=== PATIENT | female | born 1985 | race Caucasian/White ===

== ENCOUNTER 2016-06-12 11:04 | Emergency (ER) | payer MEDICAID ==
[~2016-06-12] VITALS: Ht 154.9 cm; Wt 50.0 kg
[~2016-06-12 11:04] MED LIST: BUTATAB6 PO; CYCL1TAB29 PO; CYCL5TAB PO; DIME240C PO; FERR325T PO; MULTTAB67 PO; SENN1TAB PO
[2016-06-12 11:05] VITALS: BP 102/57; PULSE 67; RESP 16; TEMP 98.4; O2SAT 97
--- NOTE | 2016-06-12 11:30 | PD ---
HPI Chief Complaint: Neuro Symptoms/ Deficits Time Seen by Provider: 11:27 Travel History International Travel<30 days: No Contact w/Intl Traveler<30days: No Traveled to known affect area: No History of Present Illness HPI 31 year-old female history of MS, followed by Dr. Kohli, presents to the emergency department for exacerbation. Patient states over the last 4 days she has noticed a worsening in her speech and weakness in her legs. She states they have been giving out more often. She contacted Dr. Kohli's office this morning and was sized to come to the emergency department. She denies any recent illnesses but believe she is coming down with a cold. Denies fever chills. No chest pain or tightness. No difficulty breathing. No headaches or visual changes. She has no other symptoms to report at this time. PFSH Past Medical History Anemia: Yes Arthritis: No Asthma: No Autoimmune Disease: Yes (MS) Anxiety: No Depression: Yes Heart Rhythm Problems: No Cancer: No Cardiovascular Problems: No High Cholesterol: No Chemotherapy: No Chest Pain: No Congestive Heart Failure: No COPD: No Cerebrovascular Accident: No Diabetes: No Diminished Hearing: No Endocrine: No Gastrointestinal Disorders: No GERD: No Glaucoma: No Genitourinary: No Headaches: Yes Hepatitis: No Hiatal Hernia: No Hypertension: No Immune Disorder: No Implanted Vascular Access Dvce: No Kidney Stones: No Musculoskeletal: Yes (MS) Neurologic: Yes Psychiatric: No Reproductive: No Respiratory: No Immunizations Current: Yes Migraines: Yes Radiation Therapy: No Renal Failure: No Seizures: No Sickle Cell Disease: No Sleep Apnea: No Thyroid Disease: Yes (mass ( DENIES)) Ulcer: No ?: Not LMP: 06/08/16 : 3 Para: 3 Tubal Ligation: Yes Past Surgical History Abdominal Surgery: No AICD: No Appendectomy: No Arteriovenous Shunt: No Cardiac Surgery: No Section: Yes (X3) Cholecystectomy: No Ear Surgery: No Endocrine Surgery: No Eye Surgery: No Genitourinary Surgery: No Gynecologic Surgery: Yes (, tubal ligation) Insulin Pump: No Joint Replacement: No Neurologic Surgery: No Oral Surgery: No Pacemaker: No Thoracic Surgery: No Other Surgery: Yes Social History Alcohol Use: Yes (3-4x week) Tobacco Use: No Substance Use: No Allergies-Medications (Allergen,Severity, Reaction): Coded Allergies: Lortab (Verified Allergy, Severe, 05/08/16) vomiting Tramadol (Verified Allergy, Severe, Nausea/Vomiting, 05/08/16) Reported Meds & Prescriptions Reported Meds & Active Scripts Active Flexeril (Cyclobenzaprine HCl) 10 Mg Tab 10 Mg PO TID Flexeril (Cyclobenzaprine HCl) 5 Mg Tab 5 Mg PO HS Vaaixoorta-Hddrxoocxgmjh-Jgtwrtgb 50-325-40 Mg Tab 1 Tab PO Q8H PRN Senna Plus 8.6-50 mg (Sennosides-Docusate Sodium) 1 Tab Tab 2 Tab PO BID PRN 30 Days Ferrous Sulfate 325 Mg Tab 325 Mg PO BID@12,17 30 Days Reported Tecfidera (Dimethyl Fumarate) 240 Mg Cap 240 Mg PO BID Multiple Vitamin 1 Tab 1 Tab PO DAILY Review of Systems Except as stated in HPI: all other systems reviewed are Neg Physical Exam Narrative GENERAL: Well-nourished female patient, ambulatory by walker assistance, in no acute distress SKIN: Warm and dry. HEAD: Atraumatic. Normocephalic. EYES: Pupils equal and round. No scleral icterus. No injection or drainage. ENT: No nasal bleeding or discharge. Mucous membranes pink and moist. NECK: Trachea midline. No JVD. CARDIOVASCULAR: Regular rate and rhythm. No murmur appreciated. RESPIRATORY: No accessory muscle use. Clear to auscultation. Breath sounds equal bilaterally. GASTROINTESTINAL: Abdomen soft, non-tender, nondistended. Hepatic and splenic margins not palpable. MUSCULOSKELETAL: No obvious deformities. No clubbing. No cyanosis. No edema. NEUROLOGICAL: Awake and alert. No obvious cranial nerve deficits. Intermittent Spastic movements of the extremities. Stuttered speech. Data Data Last Documented VS Vital Signs Date Time Temp Pulse Resp B/P Pulse Ox O2 Delivery O2 Flow Rate FiO2 06/12/16 11:05 98.4 67 16 102/57 97 Room Air Orders MDM Medical Decision Making Medical Screen Exam Complete: Yes Emergency Medical Condition: Yes Medical Record Reviewed: Yes Differential Diagnosis MS exacerbation versus viral syndrome versus electrolyte abnormality versus intracranial etiology. Narrative Course 31 year-old female presents to the emergency department for evaluation of MS workup. Workup was initiated in triage. Once a medical bed becomes available, patient will be transferred and care assumed by that provider. 11:29 AM a call has been placed to Dr. Kohli for recommended care plan. [id number] I spoke with Dr. Kohli. Dr. Kohli would not like a workup done here in emergency department. He is in his [place] office, like to evaluate the patient there. I spoke with Latosha in his office who states the patient can go immediately there and they will fit her in. I discussed this plan with the patient. She is in agreement with this plan of care. She agrees to return immediately with any acute worsening of symptoms. Initial workup is canceled at this time. Diagnosis Primary Impression: Multiple sclerosis exacerbation Referrals: Donn Kohli PhD MD Patient Instructions: General Instructions, Multiple Sclerosis (DC) Additional Instructions: [address] [place] [address] on the Right Turn right there 3 story building First floor[address] Med/Other Pt SpecificInfo: No Change to Meds Disposition: 01 DISCHARGE HOME Condition: Stable Katie Farias Jun 12, 2016 11:29
[2016-06-20] MEDS ORDERED: IBUP-232 PO (11:14)
[2016-06-20] MEDS ORDERED: MIREIUD I-UTERINE (11:15)
== END 2016-06-12 12:02 | disposition home or self-care (01) ==
LOC: NETRI 11:04
DX: G35 Multiple sclerosis (principal)
CPT/HCPCS: 99283

== ENCOUNTER 2016-11-06 16:12 | Inpatient (IN) | payer MEDICAID ==
[~2016-11-06] VITALS: Ht 154.9 cm; Wt 54.8 kg
[~2016-11-06 16:12] MED LIST changes: +IBUP-232 PO; +MIREIUD I-UTERINE
[2016-11-06 16:14] VITALS: BP 108/59; PULSE 74; RESP 16; TEMP 98.4; O2SAT 5; O2SAT 99
[2016-11-06] MEDS ORDERED: BUTA1CAP PO (16:39)
[2016-11-06] MEDS ORDERED: BACL10TA PO (16:39)
[2016-11-06] MEDS ORDERED: methylPREDNISolone SO SUCC INJ 250 MG in DEXTROSE 5% IN WATER 100ML INJ 100 ML IV ONE ×2 (16:45)
[2016-11-06] MEDS ORDERED: RANITIDINE HCL SYRUP 150 MG/10 ML UDC PO ONE (16:45)
[2016-11-06 16:59] LABS: AUTOMATED NEUTROPHIL # 3.3 TH/MM3 (1.8-7.7); BASOPHIL % 0.9 % (0.0-2.0); EOSINOPHIL # 0.2 TH/MM3 (0-0.4); HEMATOCRIT 37.2 % (35.0-46.0); HEMO FLAGS DIFF FINAL; LYMPHOCYTE # 1.6 TH/MM3 (1.0-4.8); MEAN CELL VOLUME 83.1 FL (80.0-100.0); MEAN CORPUSCULAR HEMOGLOBIN 27.5 PG (27.0-34.0); MEAN CORPUSCULAR HGB CONC 33.1 % (32.0-36.0); MONO % 6.5 % (0.0-8.0); NEUT % 58.6 % (16.0-70.0); PLATELET COUNT 257 TH/MM3 (150-450); RED BLOOD COUNT 4.48 MIL/MM3 (4.00-5.30); RED CELL DISTRIBUTION WIDTH 11.8 % (11.6-17.2); WHITE BLOOD COUNT 5.4 TH/MM3 (4.0-11.0)
[2016-11-06 17:09] LABS: CHLORIDE 107 MEQ/L (98-107); POTASSIUM 3.4 MEQ/L (3.5-5.1); SODIUM (NA) 142 MEQ/L (136-145)
[2016-11-06 17:12] LABS: ANION GAP 7 MEQ/L (5-15); BLOOD UREA NITROGEN 12 MG/DL (7-18)
[2016-11-06 17:15] LABS: ALT (GPT) 19 U/L (10-53)
[2016-11-06 17:16] LABS: AST (GOT) 14 U/L (15-37); GLOMERULAR FILTRATION RATE 110 ML/MIN (>89)
[2016-11-06 17:17] LABS: TOTAL BILIRUBIN ADULT 0.2 MG/DL (0.2-1.0)
[2016-11-06 17:18] LABS: ALKALINE PHOSPHATASE 63 U/L (45-117)
--- NOTE | 2016-11-06 17:34 | PD ---
HPI Chief Complaint: Neuro Symptoms/ Deficits Time Seen by Provider: 16:28 Travel History International Travel<30 days: No Contact w/Intl Traveler<30days: No Traveled to known affect area: No History of Present Illness HPI Patient is a 31-year-old female with history of MS, who comes in with an MS exacerbation. She went to see Dr. Kohli, her neurologist today who advised she come into the emergency department immediately admitted for management. She says she is having increasing weakness of her right leg as well as foot drop. She also reports forgetfulness and difficulty with word finding. She denies fever or chills. She says she has a chronic headache. PFSH Past Medical History Anemia: Yes Arthritis: No Asthma: No Autoimmune Disease: Yes (MS) Anxiety: No Depression: Yes Heart Rhythm Problems: No Cancer: No Cardiovascular Problems: No High Cholesterol: No Chemotherapy: No Chest Pain: No Congestive Heart Failure: No COPD: No Cerebrovascular Accident: No Diabetes: No Diminished Hearing: No Endocrine: No Gastrointestinal Disorders: No GERD: No Glaucoma: No Genitourinary: No Headaches: Yes Hepatitis: No Hiatal Hernia: No Heparin Induced Thrombocytopen: No Hypertension: No Immune Disorder: No Implanted Vascular Access Dvce: No Kidney Stones: No Musculoskeletal: Yes (MS) Neurologic: Yes Psychiatric: No Reproductive: No Respiratory: No Immunizations Current: Yes Migraines: Yes Radiation Therapy: No Renal Failure: No Seizures: No Sickle Cell Disease: No Sleep Apnea: No Thyroid Disease: Yes (mass ( DENIES)) Ulcer: No ?: Not LMP: 2 WEEKS AGO : 3 Para: 3 Tubal Ligation: Yes Past Surgical History Abdominal Surgery: No AICD: No Appendectomy: No Arteriovenous Shunt: No Cardiac Surgery: No Section: Yes (X3) Cholecystectomy: No Ear Surgery: No Endocrine Surgery: No Eye Surgery: No Genitourinary Surgery: No Gynecologic Surgery: Yes (, tubal ligation) Insulin Pump: No Joint Replacement: No Neurologic Surgery: No Oral Surgery: No Pacemaker: No Thoracic Surgery: No Other Surgery: Yes (3 and tubal ligation) Social History Alcohol Use: Yes (3-4x week) Tobacco Use: No Substance Use: No Allergies-Medications (Allergen,Severity, Reaction): Coded Allergies: Lortab (Verified Allergy, Severe, 11/06/16) vomiting Tramadol (Verified Allergy, Severe, Nausea/Vomiting, 11/06/16) Reported Meds & Prescriptions Reported Meds & Active Scripts Active Reported Baclofen 10 Mg Tab 10 Mg PO BID Fioricet (Bumpdrwftv-Eodmczsaqymob-Xbgisobf) 50-300-40 Mg Cap 1 Cap PO Q6HR PRN Mirena (Levonorgestrel (Iud)) 20 Mcg/24 Hr Iud 52 Mg I-UTERINE ONCE Review of Systems Except as stated in HPI: all other systems reviewed are Neg General / Constitutional: No: Fever, Chills Eyes: No: Blurred Vision HENT: Positive: Headaches Cardiovascular: No: Chest Pain or Discomfort Respiratory: No: Shortness of Breath Gastrointestinal: No: Nausea, Vomiting Musculoskeletal: Positive: Pain Skin: No Rash, No Change in Pigmentation Neurologic: Positive: Weakness Physical Exam Narrative GENERAL: Awake and alert, in no acute distress. SKIN: Focused skin assessment warm/dry. HEAD: Atraumatic. Normocephalic. EYES: Pupils equal and round. No scleral icterus. Extraocular movements intact. ENT: Mucous membranes pink and moist. NECK: Trachea midline. No JVD. CARDIOVASCULAR: Regular rate and rhythm. No murmur appreciated. RESPIRATORY: No accessory muscle use. Clear to auscultation. Breath sounds equal bilaterally. GASTROINTESTINAL: Abdomen soft, non-tender, nondistended. MUSCULOSKELETAL: No obvious deformities. No clubbing. No cyanosis. No edema. NEUROLOGICAL: Awake and alert. No obvious cranial nerve deficits. Weakness in both legs, unable to lift right leg. Decreased sensation in the right leg. Normal speech. PSYCHIATRIC: Appropriate mood and affect; insight and judgment normal. Data Data Last Documented VS Vital Signs Date Time Temp Pulse Resp B/P Pulse Ox O2 Delivery O2 Flow Rate FiO2 11/06/16 16:14 98.4 74 16 108/59 99 Orders Iv Access Insert/Monitor (11/06/16 16:36) Complete Blood Count With Diff (11/06/16 16:36) Comprehensive Metabolic Panel (11/06/16 16:36) Ranitidine Liq (Zantac Liq) (11/06/16 16:45) Methylprednisolone So Succ Inj (Solumedr (11/06/16 16:45) Labs Laboratory Tests Test 11/06/16 16:50 White Blood Count 5.4 TH/MM3 Red Blood Count 4.48 MIL/MM3 Hemoglobin 12.3 GM/DL Hematocrit 37.2 % Mean Corpuscular Volume 83.1 FL Mean Corpuscular Hemoglobin 27.5 PG Mean Corpuscular Hemoglobin 33.1 % Concent Red Cell Distribution Width 11.8 % Platelet Count 257 TH/MM3 Mean Platelet Volume 7.8 FL Neutrophils (%) (Auto) 58.6 % Lymphocytes (%) (Auto) 30.0 % Monocytes (%) (Auto) 6.5 % Eosinophils (%) (Auto) 4.0 % Basophils (%) (Auto) 0.9 % Neutrophils # (Auto) 3.3 TH/MM3 Lymphocytes # (Auto) 1.6 TH/MM3 Monocytes # (Auto) 0.3 TH/MM3 Eosinophils # (Auto) 0.2 TH/MM3 Basophils # (Auto) 0.0 TH/MM3 CBC Comment DIFF FINAL Differential Comment Sodium Level 142 MEQ/L Potassium Level 3.4 MEQ/L Chloride Level 107 MEQ/L Carbon Dioxide Level 28.0 MEQ/L Anion Gap 7 MEQ/L Blood Urea Nitrogen 12 MG/DL Creatinine 0.64 MG/DL Estimat Glomerular Filtration 110 ML/MIN Rate Random Glucose 134 MG/DL Calcium Level 9.0 MG/DL Total Bilirubin 0.2 MG/DL Aspartate Amino Transf 14 U/L (AST/SGOT) Alanine Aminotransferase 19 U/L (ALT/SGPT) Alkaline Phosphatase 63 U/L Total Protein 7.2 GM/DL Albumin 3.7 GM/DL [facility] Medical Decision Making Medical Screen Exam Complete: Yes Emergency Medical Condition: Yes Medical Record Reviewed: Yes Differential Diagnosis MS flare versus anemia versus electrolyte abnormality Narrative Course Patient is a 31-year-old female, with history of MS, who comes in with an MS flare up saw Dr. Kohli, her neurologist, who sent her here for admission. He would like her to be on Zantac 150 mg twice a day as well as receiving 250 mg of Solu-Medrol IV every 6 hours. Patient given first dose of Zantac as well as Solu-Medrol here in the ED. Labs sent show no acute abnormalities. She was given Toradol for her headache and pain. She will be admitted for further management. Diagnosis Primary Impression: Multiple sclerosis exacerbation Admitting Information Admitting Physician Requests: Admit Condition: Stable Farhana Rivera MD Nov 06, 2016 17:33
--- NOTE | 2016-11-06 18:10 | HHI.HP ---
[facility] Primary [facility] Physician Scout Johnson Admission Diagnosis MS Flare Diagnoses: Chief Complaint: MS flare Travel History International Travel<30 Days: No Contact w/Intl Traveler <30 Da: No Traveled to Known Affected Are: No History of Present Illness The patient is a 31-year-old female with a past medical history of multiple sclerosis who is presenting to the hospital with a multiple sclerosis flareup. She says that she was formally diagnosed with multiple sclerosis at the age of 23. She said she had optic neuritis at that time. Since then she has had a relatively limp right leg. Her vision has since improved. She says that she chronically gets flareups, the last flareup being in June. She says for the past week her legs up and giving way when she was walking. She has been falling regularly, but has not been hitting her head. She says she has been having difficulty with her speech. She says she knows what she wants to say but she is unable to say the words. She does endorse a headache located at her bilateral temples. She says she has been eating well. She denies any recent fevers. She said she has been treated with medication for her multiple sclerosis by her neurologist. She did see her neurologist today who referred her to the hospital. She said she does not do well when she receives steroids in large doses but does well if the steroid doses are reduced and given more frequently. She says she generally has a hard time sleeping when on steroids. She says food does not taste good. Review of Systems Except as stated in HPI: all other systems reviewed are Neg Past Family Social History Past Medical History MS Anemia Past Surgical History Tubal ligation C/s x 3 Allergies: Coded Allergies: Lortab (Verified Allergy, Severe, 11/06/16) vomiting Tramadol (Verified Allergy, Severe, Nausea/Vomiting, 11/06/16) Active Ordered Medications Current Medications Medications (Trade) Dose Ordered Sig/Gabriella Route Start Time Stop Time Status Last Admin (Zantac Liq) 150 mg Q12HR PO 11/07/16 05:00 UNV (SoluMEDROL INJ) 250 mg Q6HR IV PUSH 11/06/16 23:00 UNV (Lioresal) 10 mg BID PO 11/06/16 21:00 UNV Non-Formulary Medication 1 cap Q6HR PRN PO 11/06/16 18:15 UNV (K-Lyte Cl Eff) 50 meq ONCE ONCE PO 11/06/16 18:15 11/06/16 18:16 UNV (Tylenol) 650 mg Q4H PRN PO 11/06/16 18:15 UNV (Tylenol) 650 mg Q6H PRN PO 11/06/16 18:15 UNV (Narcan Inj) 0.4 mg UNSCH PRN IV 11/06/16 18:15 UNV (Swati-Colace) 1 tab BID PO 11/06/16 21:00 UNV Family History The pt is adopted. Social History The pt does not smoke. She drinks occasionally. She does not use drugs. Physical Exam Vital Signs Vital Signs Date Time Temp Pulse Resp B/P Pulse Ox O2 Delivery O2 Flow Rate FiO2 11/06/16 16:14 98.4 74 16 108/59 99 Physical Exam GENERAL: Awake and alert, in no acute distress. SKIN: Focused skin assessment warm/dry. HEAD: Atraumatic. Normocephalic. EYES: Pupils equal and round. No scleral icterus. Extraocular movements intact. ENT: Mucous membranes pink and moist. NECK: Trachea midline. No JVD. CARDIOVASCULAR: Regular rate and rhythm. No murmur appreciated. RESPIRATORY: No accessory muscle use. Clear to auscultation. Breath sounds equal bilaterally. GASTROINTESTINAL: Abdomen soft, non-tender, nondistended. MUSCULOSKELETAL: No obvious deformities. No clubbing. No cyanosis. No edema. NEUROLOGICAL: Awake and alert. No obvious cranial nerve deficits. Mild weakness in left leg, unable to lift right leg. Expressive aphasia noted. PSYCHIATRIC: Appropriate mood and affect; insight and judgment normal. Laboratory Laboratory Tests Test 11/06/16 16:50 White Blood Count 5.4 Red Blood Count 4.48 Hemoglobin 12.3 Hematocrit 37.2 Mean Corpuscular Volume 83.1 Mean Corpuscular Hemoglobin 27.5 Mean Corpuscular Hemoglobin 33.1 Concent Red Cell Distribution Width 11.8 Platelet Count 257 Mean Platelet Volume 7.8 Neutrophils (%) (Auto) 58.6 Lymphocytes (%) (Auto) 30.0 Monocytes (%) (Auto) 6.5 Eosinophils (%) (Auto) 4.0 Basophils (%) (Auto) 0.9 Neutrophils # (Auto) 3.3 Lymphocytes # (Auto) 1.6 Monocytes # (Auto) 0.3 Eosinophils # (Auto) 0.2 Basophils # (Auto) 0.0 CBC Comment DIFF FINAL Differential Comment Sodium Level 142 Potassium Level 3.4 Chloride Level 107 Carbon Dioxide Level 28.0 Anion Gap 7 Blood Urea Nitrogen 12 Creatinine 0.64 Estimat Glomerular Filtration 110 Rate Random Glucose 134 Calcium Level 9.0 Total Bilirubin 0.2 Aspartate Amino Transf 14 (AST/SGOT) Alanine Aminotransferase 19 (ALT/SGPT) Alkaline Phosphatase 63 Total Protein 7.2 Albumin 3.7 Result Diagram: 11/06/16164911/06/161649 Assessment and Plan Assessment and Plan Multiple sclerosis flare The pt has frequent flare-ups and was sent in to the hospital by her neurologist. - Solumedrol 250 mg IV q6h and ranitidine 150 BID per neurology. - PT/ OT. - follow up with neurology. - continue Baclofen. - fall precautions. Headache Possibly migraine or s/t MS flare. - continue home Fioricet. Hypokalemia K level 3.4. - replete and monitor. Hyperglycemia S/t steroids. - monitor as needed. PPx: SCDs Code Status Full Discussed Condition With Pt, Dr. Rivera, nurse Physician Certification 2 Midnight Certification Type: Admission for Inpatient Services Order for Inpatient Services The services are ordered in accordance with Medicare regulations or non- Medicare payer requirements, as applicable. In the case of services not specified as inpatient-only, they are appropriately provided as inpatient services in accordance with the 2-midnight benchmark. Estimated LOS (days): 2 days is the estimated time the patient will need to remain in the hospital, assuming treatment plan goals are met and no additional complications. Post-Hospital Plan: Home Gil Sebastian DO Nov 06, 2016 18:10
[2016-11-06] MEDS ORDERED: NALOXONE HCL 0.4 MG/ML AMP IV PRN (18:15)
[2016-11-06] MEDS ORDERED: POTASSIUM CHLORIDE 25 MEQ EFFERVESCENT TAB PO ONE (18:15)
[2016-11-06] MEDS ORDERED: ACETAMIN 325 MG/BUTALBITAL 50 MG/CAFFEINE 40 MG TAB PO PRN (18:15)
[2016-11-06] MEDS ORDERED: ACETAMINOPHEN 325 MG TAB PO PRN ×2 (18:15)
[2016-11-06 18:20] VITALS: BP 111/79; PULSE 66; RESP 20; TEMP 98.2; O2SAT 99
[2016-11-06] MEDS: SODIUM CHLOR 0.9% 1000 ML INJ 1,000 ML IV SCH (18:36)
[2016-11-06] MEDS: DOCUSATE SODIUM 50 MG/SENNA 8.6 MG TAB PO SCH (21:34)
[2016-11-06] MEDS: BACLOFEN 10 MG TAB PO SCH (21:34)
[2016-11-06] MEDS: SODIUM CHLORIDE 0.9% FLUSH 10 ML FLUSH IV FLUSH SCH (21:34)
[2016-11-07] VITALS: BP 100/67; PULSE 71; RESP 20; TEMP 97.3; O2SAT 99
[2016-11-07] MEDS: methylPREDNISolone SOD SUCC 125 MG/2 ML VIAL IV PUSH SCH ×6 (00:16→23:24)
[2016-11-07] MEDS ORDERED: RANITIDINE HCL SYRUP 150 MG/10 ML UDC PO SCH (05:00)
[2016-11-07] MEDS: SODIUM CHLOR 0.9% 1000 ML INJ 1,000 ML IV SCH (06:43)
[2016-11-07 08:00] VITALS: BP 107/70; PULSE 65; RESP 18; TEMP 97.7; O2SAT 92
--- NOTE | 2016-11-07 08:05 | MB ---
cc: ADELSO BANGURA M.D. DATE OF CONSULTATION 11/07/2016 REASON FOR CONSULTATION Multiple sclerosis exacerbation. HISTORY OF PRESENT ILLNESS Mrs. Sullivan is a very pleasant 31-year-old woman who has a known history of relapsing/remitting multiple sclerosis well documented. She has been on Tecfidera. She was initially diagnosed with MS at age 23 at which time she had optic neuritis and weakness of the right leg. Her symptoms have improved. She has been on Tecfidera now for about a year. Her last relapse was last June and then she had one last February. She generally responds well to IV Solu-Medrol. She relates now for the past week increasing weakness particularly in the right leg, but also the left leg. She has had numbness in the right arm. She also notes significant cognitive symptoms with trouble formulating her thoughts and speaking. PAST MEDICAL HISTORY Remarkable for: 1. Multiple sclerosis 2. Tubal ligation 3. Anemia ALLERGIES LORTAB AND TRAMADOL MEDICATIONS AT HOME At home, she takes Tecfidera 240 mg b.i.d. NEUROLOGIC EXAMINATION VITAL SIGNS: Blood pressure is 100/67, pulse 71 regular, respirations are 20, temperature 97.3 degrees. HIGHER CORTICAL FUNCTIONS: She is alert. Her speech is mildly nonfluent with some degree of hesitancy. At times, she makes paraphasic errors. Cranial nerves are intact. There is no Dillon Verónica pupil. The extraocular movements are normal with no JOSE RAUL. MOTOR EXAMINATION: On motor examination, she has a mild weakness in the right hand at 4/5. Other groups in both upper extremities are 5/5 strength. She is very weak in the right leg at 3/5 for the iliopsoas, quads, hamstring, tibia anterior and gastrocnemius groups. Left leg is 4/5 for the same groups. She does have some spastic catches in the right leg. Sensation is diminished on the right side. Reflexes 1+ biceps, triceps, brachial radialis symmetric 2+ left patellar 3+ right patellar. She does have Babinski's bilaterally. LABORATORY DATA The white count is 5400, hemoglobin 12.3, hematocrit 37.2% platelet count 257,000. Sodium is 142, potassium 3.4, chloride 107, CO2 28, the BUN is 12, creatinine 0.64, GFR is 110, glucose 134, AST 14, ALT 19, alk phos 63. IMPRESSION Multiple sclerosis exacerbation. RECOMMENDATIONS Would recommend IV Solu-Medrol 250 mg IV q6 hours to treat her for a total of three to five days depending on her responsiveness. MD JAIRON Chavis/RICK /7:35 AM /7:51 AM
[2016-11-07 08:22] LABS: AUTOMATED NEUTROPHIL # 8.7 TH/MM3 (1.8-7.7); BASOPHIL % 0.1 % (0.0-2.0); HEMATOCRIT 36.2 % (35.0-46.0); HEMO FLAGS DIFF FINAL; LYMPH % 4.9 % (9.0-44.0); LYMPHOCYTE # 0.4 TH/MM3 (1.0-4.8); MEAN CELL VOLUME 82.9 FL (80.0-100.0); MEAN CORPUSCULAR HEMOGLOBIN 26.6 PG (27.0-34.0); MEAN CORPUSCULAR HGB CONC 32.1 % (32.0-36.0); MONO % 0.7 % (0.0-8.0); NEUT % 94.3 % (16.0-70.0); PLATELET COUNT 282 TH/MM3 (150-450); RED BLOOD COUNT 4.36 MIL/MM3 (4.00-5.30); RED CELL DISTRIBUTION WIDTH 11.6 % (11.6-17.2); WHITE BLOOD COUNT 9.2 TH/MM3 (4.0-11.0)
[2016-11-07 08:29] LABS: CHLORIDE 107 MEQ/L (98-107); POTASSIUM 3.7 MEQ/L (3.5-5.1); SODIUM (NA) 142 MEQ/L (136-145)
[2016-11-07 08:33] LABS: ANION GAP 9 MEQ/L (5-15); APTT (PATIENT) 25.9 SEC (24.3-30.1); BICARBONATE 26.4 MEQ/L (21.0-32.0); BLOOD UREA NITROGEN 9 MG/DL (7-18); PROTHROMBIN TIME - PATIENT 10.7 SEC (9.8-11.6)
[2016-11-07 08:36] LABS: ALT (GPT) 21 U/L (10-53); AST (GOT) 13 U/L (15-37); GLOMERULAR FILTRATION RATE 136 ML/MIN (>89)
[2016-11-07 08:37] LABS: TOTAL BILIRUBIN ADULT 0.3 MG/DL (0.2-1.0)
[2016-11-07 08:39] LABS: ALKALINE PHOSPHATASE 58 U/L (45-117)
[2016-11-07 08:41] LABS: BETA HCG QUANT LESS THAN 1 MIU/ML (0-5)
[2016-11-07] MEDS: BACLOFEN 10 MG TAB PO SCH ×2 (09:00→22:13)
[2016-11-07] MEDS: FAMOTIDINE 20 MG TAB PO SCH ×2 (09:04→22:13)
[2016-11-07] MEDS: DOCUSATE SODIUM 50 MG/SENNA 8.6 MG TAB PO SCH ×2 (09:04→22:13)
[2016-11-07] MEDS: SODIUM CHLORIDE 0.9% FLUSH 10 ML FLUSH IV FLUSH SCH ×2 (09:05→22:14)
--- NOTE | 2016-11-07 09:33 | HHI.PR ---
Subjective Remarks The patient said that she had a hard time sleeping because of the steroids. She said that she had diffuse body pains but her headache improved. She was wondering about getting sleep medication and the medication. She was wondering if she could get nausea medication prior to the pain medication. Objective Vitals Vital Signs Date Time Temp Pulse Resp B/P Pulse Ox O2 Delivery O2 Flow Rate FiO2 11/07/16 08:00 97.7 65 18 107/70 92 11/07/16 00:00 97.3 71 20 100/67 99 11/06/16 18:20 98.2 66 20 111/79 99 11/06/16 16:14 98.4 74 16 108/59 99 I/O 11/06/16 11/06/16 11/06/16 11/07/16 11/07/16 11/07/16 07:00 15:00 23:00 07:00 15:00 23:00 Intake Total 1008 ml 120 ml Balance 1008 ml 120 ml Intake Oral 720 ml 120 ml IV Total 288 ml # Voids 1 2 # Bowel Movements 0 0 Result Diagram: 11/07/16 0815 11/07/16 0815 Objective Remarks GENERAL: Awake and alert, in no acute distress. SKIN: Focused skin assessment warm/dry. HEAD: Atraumatic. Normocephalic. EYES: Pupils equal and round. No scleral icterus. Extraocular movements intact. ENT: Mucous membranes pink and moist. NECK: Trachea midline. No JVD. CARDIOVASCULAR: Regular rate and rhythm. No murmur appreciated. RESPIRATORY: No accessory muscle use. Clear to auscultation. Breath sounds equal bilaterally. GASTROINTESTINAL: Abdomen soft, non-tender, nondistended. MUSCULOSKELETAL: No obvious deformities. No clubbing. No cyanosis. No edema. NEUROLOGICAL: Awake and alert. No obvious cranial nerve deficits. Mild weakness in left leg, minimally able to move right leg. Expressive aphasia noted. PSYCHIATRIC: Appropriate mood and affect; insight and judgment normal. Medications and IVs Current Medications Medications (Trade) Dose Ordered Sig/Gabriella Route Start Time Stop Time Status Last Admin (SoluMEDROL INJ) 250 mg Q6HR IV PUSH 11/06/16 23:00 11/07/16 06:43 (Lioresal) 10 mg BID PO 11/06/16 21:00 11/06/16 21:34 Acetaminophen/ Butalbital/ Caffeine 1 tab 1 tab Q6HR PRN PO 11/06/16 18:15 11/06/16 21:34 (NS 1000 ml Inj) 1,000 ml @ 100 mls/hr Q10H IV 11/06/16 18:02 11/07/16 14:01 11/07/16 06:43 (NS Flush) 2 ml UNSCH PRN IV FLUSH 11/06/16 18:15 (NS Flush) 2 ml BID IV FLUSH 11/06/16 21:00 11/07/16 09:05 (Tylenol) 650 mg Q4H PRN PO 11/06/16 18:15 (Tylenol) 650 mg Q6H PRN PO 11/06/16 18:15 11/06/16 21:36 (Narcan Inj) 0.4 mg UNSCH PRN IV 11/06/16 18:15 (Swati-Colace) 1 tab BID PO 11/06/16 21:00 11/07/16 09:04 (Pepcid) 20 mg BID PO 11/07/16 09:00 11/07/16 09:04 A/P Assessment and Plan Multiple sclerosis flare The pt has frequent flare-ups and was sent in to the hospital by her neurologist. - Solumedrol 250 mg IV q6h and ranitidine 150 BID per neurology. - PT/ OT. - follow up with neurology. - continue Baclofen. - fall precautions. - pain control with antiemetics as needed. Headache Possibly migraine or s/t MS flare. - continue home Fioricet. Resolved. Hypokalemia K level 3.4. - replete and monitor. Resolved. Hyperglycemia S/t steroids. - monitor as needed. - insulin sliding scale with glucose monitoring. Insomnia S/t steroids. - trial of Ambien. PPx: SCDs Discharge Planning Awaiting neurology clearance Gil Sebastian DO Nov 07, 2016 09:33
[2016-11-07] MEDS: INSULIN ASPART SUPPLEMENTAL SCALE SQ SCH ×3 (11:00→21:00)
[2016-11-07] MEDS: ONDANSETRON HCL 4 MG/2 ML VIAL IV PUSH PRN ×2 (11:37→17:26)
[2016-11-07 12:00] VITALS: BP 106/66; PULSE 75; RESP 18; TEMP 97.9; O2SAT 100
[2016-11-07 16:00] VITALS: BP 102/68; PULSE 81; RESP 17; TEMP 97.5; O2SAT 99
[2016-11-07 20:00] VITALS: BP 105/68; PULSE 64; RESP 16; TEMP 97; O2SAT 99
[2016-11-07] MEDS ORDERED: MAGNESIUM HYDROXIDE SUSP 30 ML CUP PO ONE (22:30)
[2016-11-07] MEDS: ZOLPIDEM TARTRATE 5 MG TAB PO PRN (23:24)
[2016-11-08] VITALS: BP 112/70; PULSE 60; RESP 16; TEMP 95.5; O2SAT 100
[2016-11-08] MEDS: methylPREDNISolone SOD SUCC 125 MG/2 ML VIAL IV PUSH SCH ×4 (06:36→23:47)
[2016-11-08] MEDS: ONDANSETRON HCL 4 MG/2 ML VIAL IV PUSH PRN (06:36)
[2016-11-08] MEDS: INSULIN ASPART SUPPLEMENTAL SCALE SQ SCH ×4 (07:00→20:35)
[2016-11-08 08:00] VITALS: BP 98/57; PULSE 65; RESP 16; TEMP 97.2; O2SAT 97
[2016-11-08] MEDS: SODIUM CHLORIDE 0.9% FLUSH 10 ML FLUSH IV FLUSH SCH ×2 (09:32→20:36)
[2016-11-08] MEDS: DOCUSATE SODIUM 50 MG/SENNA 8.6 MG TAB PO SCH ×2 (09:32→20:30)
[2016-11-08] MEDS: FAMOTIDINE 20 MG TAB PO SCH ×2 (09:32→20:30)
--- NOTE | 2016-11-08 10:39 | HHI.PR ---
Subjective Remarks The patient continued to endorse improvement. She says her speech is much better and she is able to move her right leg more. She said her noticed her strength has also improved. She has been sleeping well and her pain has been controlled. She has been tolerating a diet. A money room teller was at the bedside. Objective Vitals Vital Signs Date Time Temp Pulse Resp B/P Pulse Ox O2 Delivery O2 Flow Rate FiO2 11/08/16 08:00 97.2 65 16 98/57 97 11/08/16 00:00 95.5 60 16 112/70 100 11/07/16 20:00 97.0 64 16 105/68 99 11/07/16 16:00 97.5 81 17 102/68 99 11/07/16 12:00 97.9 75 18 106/66 100 I/O 11/07/16 11/07/16 11/07/16 11/08/16 11/08/16 11/08/16 07:00 15:00 23:00 07:00 15:00 23:00 Intake Total 120 ml 1300 ml 420 ml 0 ml Balance 120 ml 1300 ml 420 ml 0 ml Intake Oral 120 ml 420 ml IV Total 1300 ml 0 ml # Voids 2 3 3 # Bowel Movements 0 0 Result Diagram: 11/07/1681411/07/1615 Objective Remarks GENERAL: Awake and alert, in no acute distress. SKIN: Focused skin assessment warm/dry. HEAD: Atraumatic. Normocephalic. EYES: Pupils equal and round. No scleral icterus. Extraocular movements intact. ENT: Mucous membranes pink and moist. NECK: Trachea midline. No JVD. CARDIOVASCULAR: Regular rate and rhythm. No murmur appreciated. RESPIRATORY: No accessory muscle use. Clear to auscultation. Breath sounds equal bilaterally. GASTROINTESTINAL: Abdomen soft, non-tender, nondistended. MUSCULOSKELETAL: No obvious deformities. No clubbing. No cyanosis. No edema. NEUROLOGICAL: Awake and alert. No obvious cranial nerve deficits. Mild weakness in left leg, minimally able to move right leg. Expressive aphasia improved. PSYCHIATRIC: Appropriate mood and affect; insight and judgment normal. Procedures None Medications and IVs Current Medications Medications (Trade) Dose Ordered Sig/Gabriella Route Start Time Stop Time Status Last Admin (SoluMEDROL INJ) 250 mg Q6HR IV PUSH 11/06/16 23:00 11/08/16 06:36 (Lioresal) 10 mg BID PO 11/06/16 21:00 11/07/16 22:13 (Fioricet 325-50-40) 1 tab Q6HR PRN PO 11/06/16 18:15 11/06/16 21:34 (NS Flush) 2 ml UNSCH PRN IV FLUSH 11/06/16 18:15 (NS Flush) 2 ml BID IV FLUSH 11/06/16 21:00 11/08/16 09:32 (Tylenol) 650 mg Q4H PRN PO 11/06/16 18:15 (Tylenol) 650 mg Q6H PRN PO 11/06/16 18:15 11/06/16 21:36 (Narcan Inj) 0.4 mg UNSCH PRN IV 11/06/16 18:15 (Swati-Colace) 1 tab BID PO 11/06/16 21:00 11/08/16 09:32 (Pepcid) 20 mg BID PO 11/07/16 09:00 11/08/16 09:32 (Zofran Inj) 4 mg Q6HR PRN IV PUSH 11/07/16 09:30 11/08/16 06:36 (Roxicodone) 5 mg Q6H PRN PO 11/07/16 09:30 11/08/16 06:37 (Ambien) 5 mg HS PRN PO 11/07/16 09:30 11/07/16 23:24 A/P Assessment and Plan Multiple sclerosis flare The pt has frequent flare-ups and was sent in to the hospital by her neurologist. - Solumedrol 250 mg IV q6h and ranitidine 150 BID per neurology. - PT/ OT. - follow up with neurology. - continue Baclofen HS. - fall precautions. - pain control with antiemetics as needed. Headache Possibly migraine or s/t MS flare. - continue home Fioricet. Resolved. Hypokalemia K level 3.4. - replete and monitor. Resolved. Hyperglycemia S/t steroids. - monitor as needed. - insulin sliding scale with glucose monitoring. Insomnia S/t steroids. - trial of Ambien. Improved. PPx: SCDs Discharge Planning Awaiting neurology clearance. Anticipate 1-2 more days Gil Sebastian DO Nov 08, 2016 10:39
[2016-11-08 12:00] VITALS: BP 99/63; PULSE 64; RESP 16; TEMP 97.1; O2SAT 96
[2016-11-08] MEDS ORDERED: IBUPROFEN 600 MG TAB PO ONE (15:00)
[2016-11-08] MEDS ORDERED: IBUPROFEN 600 MG TAB PO PRN (15:00)
[2016-11-08] MEDS ORDERED: PILL SPLITTER OTHER PRN (15:15)
[2016-11-08 16:00] VITALS: BP 100/62; PULSE 62; RESP 16; TEMP 96.7; O2SAT 99
[2016-11-08 20:00] VITALS: BP 103/54; PULSE 55; RESP 20; TEMP 97.5; O2SAT 99
[2016-11-08] MEDS ORDERED: BISACODYL 10 MG SUPP RECTAL ONE (20:00)
[2016-11-08] MEDS ORDERED: MAGNESIUM HYDROXIDE SUSP 30 ML CUP PO ONE (20:00)
--- NOTE | 2016-11-08 20:00 | HHI.PR ---
Review/Management Diagnosis Multiple sclerosis exacerbation--improving with iv solumedrol Plan Recommend continuing iv solumedrol total of 5 days until Friday. She is improving, but still has significant weakness. Diagnosis/Plan: Subjective Subjective Comments Day 2 iv solumedrol She is tolerating solumedrol well and feels her speech is improving and leg strength is improving, but still has considerable weakness and ataxia Active Medications Current Medications Medications (Trade) Dose Ordered Sig/Gabriella Route Start Time Stop Time Status Last Admin (SoluMEDROL INJ) 250 mg Q6HR IV PUSH 11/06/16 23:00 11/08/16 17:40 (Fioricet 325-50-40) 1 tab Q6HR PRN PO 11/06/16 18:15 11/06/16 21:34 (NS Flush) 2 ml UNSCH PRN IV FLUSH 11/06/16 18:15 (NS Flush) 2 ml BID IV FLUSH 11/06/16 21:00 11/08/16 09:32 (Tylenol) 650 mg Q4H PRN PO 11/06/16 18:15 (Tylenol) 650 mg Q6H PRN PO 11/06/16 18:15 11/06/16 21:36 (Narcan Inj) 0.4 mg UNSCH PRN IV 11/06/16 18:15 (Swati-Colace) 1 tab BID PO 11/06/16 21:00 11/08/16 09:32 (Pepcid) 20 mg BID PO 11/07/16 09:00 11/08/16 09:32 (Zofran Inj) 4 mg Q6HR PRN IV PUSH 11/07/16 09:30 11/08/16 06:36 (Ambien) 5 mg HS PRN PO 11/07/16 09:30 11/07/16 23:24 (Lioresal) 10 mg HS PO 11/08/16 21:00 (Roxicodone) 2.5 mg Q4H PRN PO 11/08/16 15:00 (Motrin) 600 mg Q8H PRN PO 11/08/16 15:00 (Pill Splitter) 1 ea UNSCH PRN OTHER 11/08/16 15:15 Allergies Allergies Coded Allergies Lortab (Verified Allergy, Severe, 11/06/16) Tramadol (Verified Allergy, Severe, Nausea/Vomiting, 11/06/16) Review of Systems All other ROS: ROS reviewed as documented in chart Exam I&O / VS 11/07/16 11/07/16 11/08/16 15:00 23:00 07:00 Intake Total 1300 ml 420 ml Balance 1300 ml 420 ml Intake Oral 420 ml IV Total 1300 ml # Voids 3 3 # Bowel Movements 0 Vital Signs Date Time Temp Pulse Resp B/P Pulse Ox O2 Delivery O2 Flow Rate FiO2 11/08/16 16:00 96.7 62 16 100/62 99 11/08/16 12:00 97.1 64 16 99/63 96 11/08/16 08:00 97.2 65 16 98/57 97 11/08/16 00:00 95.5 60 16 112/70 100 11/07/16 20:00 97.0 64 16 105/68 99 General: Alert and Oriented, No acute distress Eye: PERRL, EOMI Respiratory: Non-labored respirations Cardiology: Normal rate Musculoskeletal: ROM Neurologic: Alert, Oriented, CN II-XII intact, Gag reflex normal Psychiatric: Cooperative, Appropriate mood & affect, Normal judgement Exam Comments alert, speech more fluent, comprehension normal CN intact MOTOR 5/5 BUE 3/5 RLE, 3+/5 LLE Donn Kohli PhD Nov 08, 2016 20:00
[2016-11-08] MEDS ORDERED: oxyCODONE HCL 10 MG CONTROLLED RELEASE TAB PO SCH (21:00)
[2016-11-08] MEDS ORDERED: BACLOFEN 10 MG TAB PO SCH (21:00)
[2016-11-08] MEDS ORDERED: oxyCODONE HCL 10 MG CONTROLLED RELEASE TAB PO PRN (21:00)
[2016-11-08] MEDS: ZOLPIDEM TARTRATE 5 MG TAB PO PRN (22:44)
[2016-11-09] VITALS: BP 108/58; PULSE 68; RESP 20; TEMP 96.5; O2SAT 99
[2016-11-09] MEDS: methylPREDNISolone SOD SUCC 125 MG/2 ML VIAL IV PUSH SCH ×3 (05:29→18:01)
[2016-11-09] MEDS: INSULIN ASPART SUPPLEMENTAL SCALE SQ SCH ×4 (07:00→21:00)
[2016-11-09 08:00] VITALS: BP 104/64; PULSE 73; RESP 18; TEMP 98.5; O2SAT 99
[2016-11-09] MEDS: DOCUSATE SODIUM 50 MG/SENNA 8.6 MG TAB PO SCH ×2 (09:00→21:19)
[2016-11-09] MEDS: FAMOTIDINE 20 MG TAB PO SCH ×2 (09:11→21:19)
[2016-11-09] MEDS: SODIUM CHLORIDE 0.9% FLUSH 10 ML FLUSH IV FLUSH SCH ×2 (09:18→21:19)
--- NOTE | 2016-11-09 10:09 | HHI.PR ---
Subjective Remarks The patient was upset that she couldn't go home but she understands. She was requesting a different pain medication, one she received on her last hospitalization. No acute complaints. Tolerated breakfast. Objective Vitals Vital Signs Date Time Temp Pulse Resp B/P Pulse Ox O2 Delivery O2 Flow Rate FiO2 11/09/16 08:00 98.5 73 18 104/64 99 11/09/16 00:00 96.5 68 20 108/58 99 11/08/16 20:00 97.5 55 20 103/54 99 11/08/16 16:00 96.7 62 16 100/62 99 11/08/16 12:00 97.1 64 16 99/63 96 I/O 11/08/16 11/08/16 11/08/16 11/09/16 11/09/16 11/09/16 07:00 15:00 23:00 07:00 15:00 23:00 Intake Total 420 ml 480 ml 240 ml Balance 420 ml 480 ml 240 ml Intake Oral 420 ml 480 ml 240 ml IV Total 0 ml # Voids 3 2 3 # Bowel Movements 0 1 Result Diagram: 11/07/1615 11/07/1615 Objective Remarks GENERAL: Awake and alert, in no acute distress. SKIN: Focused skin assessment warm/dry. HEAD: Atraumatic. Normocephalic. EYES: Pupils equal and round. No scleral icterus. Extraocular movements intact. ENT: Mucous membranes pink and moist. NECK: Trachea midline. No JVD. CARDIOVASCULAR: Regular rate and rhythm. No murmur appreciated. RESPIRATORY: No accessory muscle use. Clear to auscultation. Breath sounds equal bilaterally. GASTROINTESTINAL: Abdomen soft, non-tender, nondistended. MUSCULOSKELETAL: No obvious deformities. No clubbing. No cyanosis. No edema. NEUROLOGICAL: Awake and alert. No obvious cranial nerve deficits. Mild weakness in left leg, minimally able to move right leg. Expressive aphasia improved. PSYCHIATRIC: Appropriate mood and affect; insight and judgment normal. Procedures None Medications and IVs Current Medications Medications (Trade) Dose Ordered Sig/Gabriella Route Start Time Stop Time Status Last Admin (SoluMEDROL INJ) 250 mg Q6HR IV PUSH 11/06/16 23:00 11/09/16 05:29 (Fioricet 325-50-40) 1 tab Q6HR PRN PO 11/06/16 18:15 11/06/16 21:34 (NS Flush) 2 ml UNSCH PRN IV FLUSH 11/06/16 18:15 (NS Flush) 2 ml BID IV FLUSH 11/06/16 21:00 11/09/16 09:18 (Tylenol) 650 mg Q4H PRN PO 11/06/16 18:15 (Tylenol) 650 mg Q6H PRN PO 11/06/16 18:15 11/06/16 21:36 (Narcan Inj) 0.4 mg UNSCH PRN IV 11/06/16 18:15 (Swati-Colace) 1 tab BID PO 11/06/16 21:00 11/09/16 09:00 (Pepcid) 20 mg BID PO 11/07/16 09:00 11/09/16 09:11 (Zofran Inj) 4 mg Q6HR PRN IV PUSH 11/07/16 09:30 11/08/16 06:36 (Ambien) 5 mg HS PRN PO 11/07/16 09:30 11/08/16 22:44 (Lioresal) 10 mg HS PO 11/08/16 21:00 (Motrin) 600 mg Q8H PRN PO 11/08/16 15:00 (Pill Splitter) 1 ea UNSCH PRN OTHER 11/08/16 15:15 ([place] 5-325 Mg) 1 tab Q4H PRN PO 11/09/16 10:00 UNV A/P Assessment and Plan Multiple sclerosis flare The pt has frequent flare-ups and was sent in to the hospital by her neurologist. - Solumedrol 250 mg IV q6h and ranitidine 150 BID per neurology. - PT/ OT. - follow up with neurology. Anticipate continuing treatment through Friday. - fall precautions. - pain control with antiemetics as needed. - D/c Baclofen per pt request. Headache Possibly migraine or s/t MS flare. - continue home Fioricet. Resolved. Hypokalemia K level 3.4. - replete and monitor. Resolved. Hyperglycemia S/t steroids. - monitor as needed. - insulin sliding scale with glucose monitoring. Insomnia S/t steroids. - trial of Ambien. Improved. PPx: SCDs Discharge Planning Awaiting neurology clearance. Anticipate d/c home on Friday Gil Sebastian DO Nov 09, 2016 10:09
[2016-11-09] MEDS: ACETAMINOPHEN/HYDROcodone 325 MG/5 MG TAB PO PRN ×3 (11:17→21:19)
[2016-11-09 13:06] VITALS: BP 107/66; PULSE 56; RESP 19; TEMP 97.6; O2SAT 98
[2016-11-09 16:00] VITALS: BP 107/70; PULSE 53; RESP 18; TEMP 98.1; O2SAT 100
[2016-11-09] MEDS ORDERED: BISACODYL 10 MG SUPP RECTAL ONE (16:00)
[2016-11-09] MEDS: ONDANSETRON HCL 4 MG/2 ML VIAL IV PUSH PRN (16:39)
[2016-11-09 20:09] VITALS: BP 119/73; PULSE 58; RESP 12; TEMP 98.5; O2SAT 95
[2016-11-09] MEDS: ZOLPIDEM TARTRATE 5 MG TAB PO PRN (21:19)
[2016-11-10 00:22] VITALS: BP 113/72; PULSE 49; RESP 16; TEMP 97.5; O2SAT 97
[2016-11-10] MEDS: methylPREDNISolone SOD SUCC 125 MG/2 ML VIAL IV PUSH SCH ×5 (00:53→23:49)
[2016-11-10] MEDS: INSULIN ASPART SUPPLEMENTAL SCALE SQ SCH ×4 (06:29→20:28)
[2016-11-10 08:00] VITALS: BP 109/73; PULSE 50; RESP 18; TEMP 97.7; O2SAT 98
[2016-11-10] MEDS: FAMOTIDINE 20 MG TAB PO SCH ×2 (08:31→20:27)
[2016-11-10] MEDS: DOCUSATE SODIUM 50 MG/SENNA 8.6 MG TAB PO SCH ×2 (08:31→20:27)
[2016-11-10] MEDS: ACETAMINOPHEN/HYDROcodone 325 MG/5 MG TAB PO PRN ×4 (08:32→21:12)
[2016-11-10] MEDS: SODIUM CHLORIDE 0.9% FLUSH 10 ML FLUSH IV FLUSH SCH ×2 (08:33→20:27)
--- NOTE | 2016-11-10 09:40 | HHI.PR ---
Subjective Remarks The patient said that she was still constipated. She says she has had very small bowel movements. She says her right leg is still pretty weak but she can move it a little bit. She wants to go home but says she will stay the extra day to complete treatment. Objective Vitals Vital Signs Date Time Temp Pulse Resp B/P Pulse Ox O2 Delivery O2 Flow Rate FiO2 11/10/16 08:00 97.7 50 18 109/73 98 11/10/16 00:22 97.5 49 16 113/72 97 11/09/16 20:09 98.5 58 12 119/73 95 11/09/16 16:00 98.1 53 18 107/70 100 11/09/16 13:06 97.6 56 19 107/66 98 I/O 11/09/16 11/09/16 11/09/16 11/10/16 11/10/16 11/10/16 07:00 15:00 23:00 07:00 15:00 23:00 Intake Total 240 ml 960 ml 240 ml Balance 240 ml 960 ml 240 ml Intake Oral 240 ml 960 ml 240 ml # Voids 3 4 0 1 # Bowel Movements 1 1 1 Result Diagram: 11/07/1681411/07/1615 Objective Remarks GENERAL: Awake and alert, in no acute distress. SKIN: Focused skin assessment warm/dry. HEAD: Atraumatic. Normocephalic. EYES: Pupils equal and round. No scleral icterus. Extraocular movements intact. ENT: Mucous membranes pink and moist. NECK: Trachea midline. No JVD. CARDIOVASCULAR: Regular rate and rhythm. No murmur appreciated. RESPIRATORY: No accessory muscle use. Clear to auscultation. Breath sounds equal bilaterally. GASTROINTESTINAL: Abdomen soft, non-tender, nondistended. MUSCULOSKELETAL: No obvious deformities. No clubbing. No cyanosis. No edema. NEUROLOGICAL: Awake and alert. No obvious cranial nerve deficits. Mild weakness in left leg, minimally able to move right leg. Expressive aphasia improved. PSYCHIATRIC: Appropriate mood and affect; insight and judgment normal. Procedures None Medications and IVs Current Medications Medications (Trade) Dose Ordered Sig/Gabriella Route Start Time Stop Time Status Last Admin (SoluMEDROL INJ) 250 mg Q6HR IV PUSH 11/06/16 23:00 11/10/16 06:24 (Fioricet 325-50-40) 1 tab Q6HR PRN PO 11/06/16 18:15 11/06/16 21:34 (NS Flush) 2 ml UNSCH PRN IV FLUSH 11/06/16 18:15 (NS Flush) 2 ml BID IV FLUSH 11/06/16 21:00 11/10/16 08:33 (Tylenol) 650 mg Q4H PRN PO 11/06/16 18:15 (Tylenol) 650 mg Q6H PRN PO 11/06/16 18:15 11/06/16 21:36 (Narcan Inj) 0.4 mg UNSCH PRN IV 11/06/16 18:15 (Swati-Colace) 1 tab BID PO 11/06/16 21:00 11/10/16 08:31 (Pepcid) 20 mg BID PO 11/07/16 09:00 11/10/16 08:31 (Zofran Inj) 4 mg Q6HR PRN IV PUSH 11/07/16 09:30 11/09/16 16:39 (Ambien) 5 mg HS PRN PO 11/07/16 09:30 11/09/16 21:19 (Motrin) 600 mg Q8H PRN PO 11/08/16 15:00 (Pill Splitter) 1 ea UNSCH PRN OTHER 11/08/16 15:15 ([place] 5-325 Mg) 1 tab Q4H PRN PO 11/09/16 10:00 11/10/16 08:32 A/P Assessment and Plan Multiple sclerosis flare The pt has frequent flare-ups and was sent in to the hospital by her neurologist. She had speech difficulties and increased weakness. Slowly improving. - Solumedrol 250 mg IV q6h and ranitidine 150 BID per neurology. - PT/ OT. - follow up with neurology. Anticipate continuing treatment through Friday. - fall precautions. - pain control with antiemetics as needed. - D/c Baclofen per pt request. Headache Possibly migraine or s/t MS flare. - continue home Fioricet. Resolved. Hypokalemia K level 3.4. - replete and monitor. Resolved. Hyperglycemia S/t steroids. - monitor as needed. - insulin sliding scale with glucose monitoring. Insomnia S/t steroids. - trial of Ambien. Improved. Constipation The pt is requesting a suppository. - Dulcolax supp ordered. PPx: SCDs Discharge Planning Awaiting neurology clearance. Anticipate d/c home on Friday Gil Sebastian DO Nov 10, 2016 09:40
[2016-11-10] MEDS ORDERED: BISACODYL 10 MG SUPP RECTAL ONE (10:00)
[2016-11-10 11:13] LABS: POTASSIUM 3.9 MEQ/L (3.5-5.1)
[2016-11-10 11:16] LABS: BICARBONATE 28.4 MEQ/L (21.0-32.0)
[2016-11-10 12:00] VITALS: BP 114/75; PULSE 57; RESP 19; TEMP 97; O2SAT 97
[2016-11-10 16:00] VITALS: BP_SYST 110; BP_SYST 145; BP_DIAS 75; PULSE 65; PULSE 71; RESP 18; TEMP 97.5; O2SAT 100; O2SAT 98
[2016-11-10 20:00] VITALS: BP 110/73; PULSE 62; RESP 16; TEMP 98.4; O2SAT 98
[2016-11-10 23:34] VITALS: BP 122/65; PULSE 55; RESP 18; TEMP 98.9; O2SAT 99
[2016-11-10] MEDS: SODIUM CHLORIDE 0.9% FLUSH 10 ML FLUSH IV FLUSH PRN (23:49)
[2016-11-10] MEDS: ZOLPIDEM TARTRATE 5 MG TAB PO PRN (23:49)
[2016-11-11] MEDS: methylPREDNISolone SOD SUCC 125 MG/2 ML VIAL IV PUSH SCH (06:16)
[2016-11-11] MEDS: SODIUM CHLORIDE 0.9% FLUSH 10 ML FLUSH IV FLUSH PRN (06:17)
[2016-11-11] MEDS: ACETAMINOPHEN/HYDROcodone 325 MG/5 MG TAB PO PRN ×2 (06:17→11:12)
[2016-11-11] MEDS: INSULIN ASPART SUPPLEMENTAL SCALE SQ SCH (06:24)
[2016-11-11] MEDS: FAMOTIDINE 20 MG TAB PO SCH (08:18)
[2016-11-11] MEDS: DOCUSATE SODIUM 50 MG/SENNA 8.6 MG TAB PO SCH (08:19)
[2016-11-11] MEDS: SODIUM CHLORIDE 0.9% FLUSH 10 ML FLUSH IV FLUSH SCH (08:19)
[2016-11-11] MEDS ORDERED: OXYC1CAP PO (09:58)
--- NOTE | 2016-11-11 09:58 | HHI.DCPOC ---
Discharge Care Plan Diagnosis: (1) Multiple sclerosis exacerbation (2) Weakness of both lower extremities Goals to Promote Your Health * To prevent worsening of your condition and complications * To maintain your health at the optimal level Directions to Meet Your Goals Take your medications as prescribed Follow your dietary instruction Follow activity as directed Keep your appointments as scheduled Take your immunizations and boosters as scheduled If your symptoms worsen call your PCP, if no PCP go to Urgent Care Center or Emergency Room Smoking is Dangerous to Your Health. Avoid second hand smoke Call the 24-hour hour crisis hotline for domestic abuse at Gil Sebastian DO Nov 11, 2016 09:58
--- NOTE | 2016-11-11 10:09 | HHI.DS ---
Discharge Summary Admission Date Nov 06, 2016 at 17:38 Discharge Date: Nov 11, 2016 Admitting Diagnosis MS Flare (1) Multiple sclerosis exacerbation ICD Code: G35 Diagnosis: Principal (2) Weakness of both lower extremities ICD Code: M62.81 Diagnosis: Principal Procedures None Brief History - From Admission The patient is a 31-year-old female with a past medical history of multiple sclerosis who is presenting to the hospital with a multiple sclerosis flareup. She says that she was formally diagnosed with multiple sclerosis at the age of 23. She said she had optic neuritis at that time. Since then she has had a relatively limp right leg. Her vision has since improved. She says that she chronically gets flareups, the last flareup being in June. She says for the past week her legs up and giving way when she was walking. She has been falling regularly, but has not been hitting her head. She says she has been having difficulty with her speech. She says she knows what she wants to say but she is unable to say the words. She does endorse a headache located at her bilateral temples. She says she has been eating well. She denies any recent fevers. She said she has been treated with medication for her multiple sclerosis by her neurologist. She did see her neurologist today who referred her to the hospital. She said she does not do well when she receives steroids in large doses but does well if the steroid doses are reduced and given more frequently. She says she generally has a hard time sleeping when on steroids. She says food does not taste good. CBC/BMP: 11/07/16 0815 11/10/16 1053 Significant Findings Laboratory Tests Test 11/10/16 10:53 Random Glucose 156 MG/DL (74-106) Calcium Level 8.2 MG/DL (8.5-10.1) PE at Discharge GENERAL: Awake and alert, in no acute distress. SKIN: Focused skin assessment warm/dry. HEAD: Atraumatic. Normocephalic. EYES: Pupils equal and round. No scleral icterus. Extraocular movements intact. ENT: Mucous membranes pink and moist. NECK: Trachea midline. No JVD. CARDIOVASCULAR: Regular rate and rhythm. No murmur appreciated. RESPIRATORY: No accessory muscle use. Clear to auscultation. Breath sounds equal bilaterally. GASTROINTESTINAL: Abdomen soft, non-tender, nondistended. MUSCULOSKELETAL: No obvious deformities. No clubbing. No cyanosis. No edema. NEUROLOGICAL: Awake and alert. No obvious cranial nerve deficits. Mild weakness in left leg, minimally able to move right leg. Expressive aphasia improved. PSYCHIATRIC: Appropriate mood and affect; insight and judgment normal. Pt update on day of discharge The patient was sitting up in a chair. Her son was at the bedside. She had just worked with physical therapy. She did want to go home. She said she has the equipment she needs. Discussed with neurology. Hospital Course Multiple sclerosis flare The pt has frequent flare-ups and was sent in to the hospital by her neurologist. She had speech difficulties and increased weakness. She received Solumedrol 250 mg IV q6h and ranitidine 150 BID per neurology. She worked with PT/ OT. She was placed on fall precautions. She received pain control as needed. She will be referred to outpt physical therapy. She will continue Tecfidera. She will follow up with neurology as an outpt. Headache The pt received Fioricet as needed and her symptoms improved. Constipation Resolved with a Dulcolax suppository. Pt Condition on Discharge: Stable Discharge Disposition: Discharge Home Discharge Time: > 30 minutes Discharge Instructions DIET: Follow Instructions for: As Tolerated, No Restrictions Activities you can perform: Weight Bearing as Kesh[place] Follow up Referrals: Neurology - 1 Week with Donn Kohli PhD MD PCP Follow-up - 1 Week New Orders: Physical Therapy - 2-3 Days New Medications: Oxycodone (Oxycodone) 5 Mg Cap 5 MG PO Q6H PRN PAIN #12 Ref 0 CAP Continued Medications: Baclofen (Baclofen) 10 Mg Tab 10 MG PO BID Muscle Spasm Ref 0 TAB Fnkpwmboro-Zsxeworjbndhh-Avwfuhpr (Fioricet) 50-300-40 Mg Cap 1 CAP PO Q6HR PRN HEADACHE Ref 0 CAP Levonorgestrel (Iud) (Mirena) 20 Mcg/24 Hr Iud 52 MG I-UTERINE ONCE #1 Gil Diaz DO Nov 11, 2016 10:09
== END 2016-11-11 12:02 | disposition home or self-care (01) | DRG 59 ==
LOC: PHED 16:12 → PHEDA 17:38 → PH3A 18:15
PROVIDERS: ADMIT Hospitalist; ATTEND Hospitalist
DX: G35 Multiple sclerosis (principal); H46.9 Unspecified optic neuritis; D64.9 Anemia, unspecified; G47.00 Insomnia, unspecified; E87.6 Hypokalemia; K59.00 Constipation, unspecified; M21.379 Foot drop, unspecified foot
CPT/HCPCS: 80048; 80053; 82948; 84702; 85025; 85610; 85730; 96374; J1815; J2405; J2930; J7030

== ENCOUNTER 2017-05-01 18:56 | Inpatient (IN) | payer MEDICAID ==
[~2017-05-01] VITALS: Ht 154.9 cm; Wt 54.4 kg
[~2017-05-01 18:56] MED LIST changes: +BACL10TA PO; +BUTA1CAP PO; -BUTATAB6 PO; -CYCL1TAB29 PO; -CYCL5TAB PO; -DIME240C PO; -FERR325T PO; -IBUP-232 PO; -MULTTAB67 PO; +OXYC1CAP PO; -SENN1TAB PO
[2017-05-01 19:07] VITALS: BP 110/57; PULSE 116; RESP 18; TEMP 100.3
[2017-05-01] MEDS ORDERED: TERI14TA PO (21:04)
[2017-05-01] MEDS ORDERED: [UNRECOGNIZED DRUG - REMARK] (21:04)
[2017-05-01] MEDS ORDERED: BUTA1CAP PO (21:08)
[2017-05-01] MEDS ORDERED: MIREIUD I-UTERINE (21:08)
[2017-05-01] MEDS ORDERED: NALOXONE HCL 0.4 MG/ML AMP IV PUSH PRN (21:30)
[2017-05-01] MEDS ORDERED: SODIUM CHLORIDE 0.9% FLUSH 10 ML FLUSH IV FLUSH PRN (21:30)
--- NOTE | 2017-05-01 21:36 | PD ---
HPI Chief Complaint: Complaint Time Seen by Provider: 20:45 Travel History International Travel<30 days: No Contact w/Intl Traveler<30days: No Traveled to known affect area: No History of Present Illness HPI The patient is a 32-year-old female that has a history of multiple sclerosis. At about 4:30 this morning she noted bilateral leg weakness and weakness and hand sewer digger bilaterally. She does have a right foot drop. She is followed by Dr. West for neurology. In the past Dr. West is put her on IV steroids and Zantac to protect the stomach. She denies any headache but does have a low- grade fever. She does have urinary symptoms with dysuria, frequency and urgency. The patient states that she sometimes gets fevers with flareups. PFSH Past Medical History Anemia: Yes Arthritis: No Asthma: No Autoimmune Disease: Yes (MS) Anxiety: Yes Depression: Yes Heart Rhythm Problems: No Cancer: No Cardiovascular Problems: Yes (Low BP) High Cholesterol: No Chemotherapy: No Chest Pain: No Congestive Heart Failure: No COPD: No Cerebrovascular Accident: No Diabetes: No Diminished Hearing: No Endocrine: No Gastrointestinal Disorders: Yes (Constipation) GERD: No Glaucoma: No Genitourinary: Yes (Incontinence) Headaches: Yes Hepatitis: No Hiatal Hernia: No Heparin Induced Thrombocytopen: No Hypertension: No Immune Disorder: No Implanted Vascular Access Dvce: No Kidney Stones: No Musculoskeletal: Yes (MS) Neurologic: Yes (MS ) Psychiatric: Yes Reproductive: No Respiratory: No Immunizations Current: Yes Migraines: Yes Radiation Therapy: No Renal Failure: No Seizures: No Sickle Cell Disease: No Sleep Apnea: No Thyroid Disease: Yes (mass ( DENIES)) Ulcer: No Tetanus Vaccination: Unknown ?: Not LMP: 04/23/2017 : 3 Para: 3 Tubal Ligation: Yes Past Surgical History Abdominal Surgery: No AICD: No Appendectomy: No Arteriovenous Shunt: No Body Medical Devices: IUD Cardiac Surgery: No Section: Yes (X3) Cholecystectomy: No Ear Surgery: No Endocrine Surgery: No Eye Surgery: No Genitourinary Surgery: No Gynecologic Surgery: Yes (3 c sections) Insulin Pump: No Joint Replacement: No Neurologic Surgery: No Oral Surgery: No Pacemaker: No Thoracic Surgery: No Other Surgery: Yes (3 c sections) Social History Alcohol Use: Yes (3-4x week) Tobacco Use: No Substance Use: Yes Allergies-Medications (Allergen,Severity, Reaction): Coded Allergies: acetaminophen (Unverified Allergy, Severe, 05/01/17) vomiting hydrocodone (Unverified Allergy, Severe, 05/01/17) vomiting tramadol (Unverified Allergy, Severe, Nausea/Vomiting, 05/01/17) Reported Meds & Prescriptions Reported Meds & Active Scripts Active Oxycodone (Oxycodone HCl) 5 Mg Cap 5 Mg PO Q6H PRN Reported Fioricet (Ygcexpjkig-Pqrygevkjtous-Xglogiel) 50-300-40 Mg Cap 1 Cap PO Q4H PRN Mirena (Levonorgestrel (Iud)) 20 Mcg/24 Hour (5 Years) Iud 1 Ea I-UTERINE ONCE [shots for ms] Aubagio (Teriflunomide) 14 Mg Tab 14 Mg PO DAILY Baclofen 10 Mg Tab 10 Mg PO BID Review of Systems Except as stated in HPI: all other systems reviewed are Neg Physical Exam Narrative GENERAL: The patient is alert, oriented 3 in no apparent distress. Her vital signs show temperature 100.3 with heart rate of 116 but otherwise normal. SKIN: Focused skin assessment warm/dry. HEAD: Atraumatic. Normocephalic. EYES: Pupils equal and round. No scleral icterus. No injection or drainage. ENT: No nasal bleeding or discharge. Mucous membranes pink and moist. NECK: Trachea midline. No JVD. CARDIOVASCULAR: Regular rate and rhythm. No murmur appreciated. RESPIRATORY: No accessory muscle use. Clear to auscultation. Breath sounds equal bilaterally. GASTROINTESTINAL: Abdomen soft, non-tender, nondistended. Hepatic and splenic margins not palpable. MUSCULOSKELETAL: No obvious deformities. No clubbing. No cyanosis. No edema. NEUROLOGICAL: Awake and alert. No obvious cranial nerve deficits. Motor grossly within normal limits. Normal speech. The patient has fairly profound weakness in both legs and a footdrop on the right. She has weakness in hand sewer digger bilaterally. PSYCHIATRIC: Appropriate mood and affect; insight and judgment normal. Data Data Last Documented VS Vital Signs Date Time Temp Pulse Resp B/P (MAP) Pulse Ox O2 Delivery O2 Flow Rate FiO2 05/01/17 19:07 100.3 116 18 110/57 (74) Orders Orders Complete Blood Count With Diff (05/01/17 20:54) Comprehensive Metabolic Panel (05/01/17 20:54) Magnesium (Mg) (05/01/17 20:54) Thyroid Stimulating Hormone (05/01/17 20:54) Urinalysis - C+S If Indicated (05/01/17 20:57) Mri Brain W&W/O Contrast (05/01/17 ) Mri L Spine W&W/O Contrast (05/01/17 ) Mri T Spine W & W/O Contrast (05/01/17 ) Mri C Spine W&W/O Contrast (05/01/17 ) Beta Hcg (Quant/Titer) (05/01/17 20:54) Admit To Inpatient (05/01/17 ) Vital Signs (Adult) Q4H (05/01/17 21:19) Neuro Checks Q4H (05/01/17 21:19) Activity Oob With Assistance (05/01/17 21:19) Coding Educator / Telemetry .CONTINUOUS (05/01/17 21:19) Diet Heart Healthy (05/02/17 Breakfast) Sodium Chloride 0.9% Flush (Ns Flush) (05/01/17 21:30) Sodium Chloride 0.9% Flush (Ns Flush) (05/02/17 09:00) Basic Metabolic Panel (Bmp) (05/02/17 06:00) Complete Blood Count With Diff (05/02/17 06:00) Pt Request For Service (05/01/17 21:19) Case Management Consult (05/01/17 21:19) Naloxone Inj (Narcan Inj) (05/01/17 21:30) Inpatient Certification (05/01/17 ) Methylprednisolone So Succ Inj (Solumedr (05/01/17 22:00) Ranitidine Liq (Zantac Liq) (05/02/17 09:00) Ranitidine Liq (Zantac Liq) (05/01/17 22:00) Consult Neurology (05/01/17 ) Admit Order (Ed Use Only) (05/01/17 21:36) MDM Medical Decision Making Medical Screen Exam Complete: Yes Emergency Medical Condition: Yes Medical Record Reviewed: Yes Differential Diagnosis Ischemic CVA, multiple sclerosis flareup, lumbar spine tumor, thoracic spine tumor, C-spine tumor, brain tumor, brain bleed-unlikely, hypo-/hyperglycemia, electrolyte disorder, Narrative Course The patient likely has a multiple sclerosis flareup with weakness in all 4 extremities. She cannot walk due to weakness in both legs. She has a right foot drop. She has trouble picking up objects because of weakness in her fingers. This is all new since 4:00 this morning. The patient can normally walk although with a limp. I discussed the patient with Dr. Hendrickson and he wanted the patient on Solu-Medrol 500 mg every 12 hours. Also, the patient will get Zantac for stomach protection. The patient is admitted to Dr. Turner. Physician Communication Physician Communication I discussed the patient with Dr. Hendrickson and Dr. Turner. Diagnosis Primary Impression: Multiple sclerosis Additional Impressions: Weakness of both lower extremities Weakness of both upper extremities Admitting Information Admitting Physician Requests: Denzel Soares MD May 01, 2017 21:36
[2017-05-01 21:49] LABS: AUTOMATED NEUTROPHIL # 8.6 TH/MM3 (1.8-7.7); BASOPHIL # 0.5 TH/MM3 (0-0.2); BASOPHIL % 4.5 % (0.0-2.0); EOSINOPHIL % 0.3 % (0.0-4.0); HEMATOCRIT 38.8 % (35.0-46.0); HEMOGLOBIN 12.9 GM/DL (11.6-15.3); LYMPH % 5.4 % (9.0-44.0); LYMPHOCYTE # 0.5 TH/MM3 (1.0-4.8); MEAN CELL VOLUME 83.1 FL (80.0-100.0); MEAN CORPUSCULAR HEMOGLOBIN 27.6 PG (27.0-34.0); MEAN CORPUSCULAR HGB CONC 33.2 % (32.0-36.0); MEAN PLATELET VOLUME 7.9 FL (7.0-11.0); MONO % 5.4 % (0.0-8.0); MONOCYTE # 0.5 TH/MM3 (0-0.9); NEUT % 84.4 % (16.0-70.0); PLATELET COUNT 278 TH/MM3 (150-450); RED BLOOD COUNT 4.66 MIL/MM3 (4.00-5.30); WHITE BLOOD COUNT 10.1 TH/MM3 (4.0-11.0)
[2017-05-01 21:58] LABS: CHLORIDE 98 MEQ/L (98-107); SODIUM (NA) 131 MEQ/L (136-145)
[2017-05-01] MEDS ORDERED: RANITIDINE HCL SYRUP 150 MG/10 ML UDC PO ONE (22:00)
[2017-05-01 22:01] LABS: ALBUMIN 3.6 GM/DL (3.4-5.0); BICARBONATE 27.1 MEQ/L (21.0-32.0); CALCIUM 8.8 MG/DL (8.5-10.1); GLUCOSE,RANDOM 100 MG/DL (74-106); MAGNESIUM 2.4 MG/DL (1.5-2.5)
[2017-05-01 22:02] LABS: BLOOD UREA NITROGEN 7 MG/DL (7-18)
[2017-05-01 22:05] LABS: ALT (GPT) 18 U/L (10-53); AST (GOT) 33 U/L (15-37); CREATININE 0.76 MG/DL (0.50-1.00); GLOMERULAR FILTRATION RATE 89 ML/MIN (>89)
[2017-05-01 22:06] LABS: TOTAL BILIRUBIN ADULT 0.8 MG/DL (0.2-1.0); TOTAL PROTEIN 8.3 GM/DL (6.4-8.2)
[2017-05-01 22:07] LABS: ALKALINE PHOSPHATASE 72 U/L (45-117)
[2017-05-01] MEDS: methylPREDNISolone SOD SUCC 125 MG/2 ML VIAL IV PUSH SCH (22:07)
[2017-05-01] MEDS ORDERED: ONDANSETRON HCL 4 MG/2 ML VIAL IV ONE (22:15)
[2017-05-01 23:11] LABS: BILIRUBIN, URINE NEG (NEG); BLOOD, URINE MOD (NEG); GLUCOSE,URINE NEG (NEG); KETONE, URINE TRACE mg/dL (NEG); NITRITE,URINE POS (NEG); URINE LEUKOCYTE ESTERASE SMALL (NEG)
[2017-05-01 23:18] LABS: URINE COLOR YELLOW (YELLW/STRAW)
[2017-05-01 23:19] LABS: BACTERIA, URINE MANY /hpf
[2017-05-01] MEDS ORDERED: GADODIAMIDE PF 287 MG/ML 10 ML VIAL (for RAD MRI) IVCONTRAST ONE (23:44)
[2017-05-02] VITALS (10 sets, daily range): BP systolic 87–107; BP diastolic 51–70; PULSE 61–97; RESP 12–20; TEMP 96.3–98.6; O2SAT 94–98
--- NOTE | 2017-05-02 | RADRPT ---
EXAM DATE/TIME: 05/01/2017 22:29 CORRECTION Corrected on: May 02, 2017; [facility] COMPARISON: MRI CERVICAL SPINE W & W/O CONTRAST, February 06, 2016, 19:02. INDICATIONS : Extremity weakness. MS. CONTRAST: 10 cc Omniscan (gadodiamide) IV MEDICAL HISTORY : Multiple sclerosis. SURGICAL HISTORY : Tubal ligation. section. ENCOUNTER: Subsequent ACUITY: 2 day PAIN SCORE: 0/10 LOCATION: spine TECHNIQUE: Multiplanar, multisequence MRI examination of the cervical spine was performed. FINDINGS: VERTEBRAE: Normal vertebral body height. Homogeneous marrow signal. ALIGNMENT: No evidence of subluxation. CORD: Redemonstration of diffuse patchy increased T2 signal abnormality throughout the brainstem and cervic al cord. This has significantly progressed in the proximal cervical spine compared to prior exam most notably at C2-4. POST FOSSA: The cerebellar tonsils are normal in position. POST-CONTRAST: No abnormal areas of enhancement are seen. C2-C3: The thecal sac has a normal configuration. There is no evidence of disc herniation or spinal canal stenosis. The neural foramina are patent bilaterally. C3-C4: Mild diffuse disc bulge with mild effacement of the anterior thecal sac which appears grossly stable from prior exam. No significant neural foraminal stenosis. C4-C5: The thecal sac has a normal configuration. There is no evidence of disc herniation or spinal canal s tenosis. The neural foramina are patent bilaterally. C5-C6: The thecal sac has a normal configuration. There is no evidence of disc herniation or spinal canal s tenosis. The neural foramina are patent bilaterally. C6-C7: Stable mild right posterior disc protrusion with mild effacement of the anterior thecal sac.. No sign ificant neural foraminal stenosis. C7-T1: The thecal sac has a normal configuration. There is no evidence of disc herniation or spinal canal s tenosis. The neural foramina are patent bilaterally. CONCLUSION: 1. Significant diffuse patchy demineralization throughout the brainstem and cervical spinal cord whic h appears significantly progressed in the proximal cervical spine most notably at C2-4. 2. No abnormal associated enhancement. 3. Stable mild disc bulges C3-4 and right posterior disc protrusion at C6-7. Kuldeep Gabriel MD on May 01, 2017 at 23:51 Board Certified Radiologist. This report was verified electronically. Kuldeep Gabriel MD on May 02, 2017 at 0:50 Board Certified Radiologist. This report was verified electronically.
--- NOTE | 2017-05-02 00:11 | RADRPT ---
EXAM DATE/TIME: 05/01/2017 22:29 [facility] COMPARISON: MRI LUMBAR SPINE W & W/O CONTRAST, December 16, 2014, 9:02. INDICATIONS : Extremity weakness. MS. CONTRAST: 10 cc Omniscan (gadodiamide) IV MEDICAL HISTORY : Multiple sclerosis. SURGICAL HISTORY : Tubal ligation. section. ENCOUNTER: Subsequent ACUITY: 2 day PAIN SCORE: 0/10 LOCATION: spine TECHNIQUE: Multiplanar multisequence MRI of the lumbar spine was performed with and without contrast. FINDINGS: The most caudal appearing lumbar vertebra is numbered as L5. Sagittal images demonstrate increased T2 signal in the distal thoracic cord most notably at T10-11 and near the conus. There is no significan t associated abnormal enhancement. VERTEBRAE: Homogeneous signal. Normal alignment. CONUS: Normal level and configuration. POST CONTRAST: No abnormal areas of contrast enhancement are seen. T12-L1: The thecal sac has a normal diameter. No evidence of disc bulge or protrusion. The neural foramina are patent bilaterally. L1-L2: The thecal sac has a normal diameter. No evidence of disc bulge or protrusion. The neural foramina are patent bilaterally. L2-L3: The thecal sac has a normal diameter. No evidence of disc bulge or protrusion. The neural foramina are patent bilaterally. L3-L4: The thecal sac has a normal diameter. No evidence of disc bulge or protrusion. The neural foramina are patent bilaterally. L4-L5: The thecal sac has a normal diameter. No evidence of disc bulge or protrusion. The neural foramina are patent bilaterally. L5-S1: The thecal sac has a normal diameter. No evidence of disc bulge or protrusion. The neural foramina are patent bilaterally. CONCLUSION: 1. Scattered increased T2 signal in the distal thoracic cord without significant enhancement consiste nt with chronic demyelinating process in this patient with history of multiple sclerosis. 2. No significant central canal or neural foraminal stenosis. Kuldeep Gabriel MD on May 02, 2017 at 0:06 Board Certified Radiologist. This report was verified electronically.
[2017-05-02] MEDS ORDERED: cefTRIAXone INJ 1,000 MG in SODIUM CHLORIDE 0.9% INJ 100 ML IV ONE (00:30)
--- NOTE | 2017-05-02 00:41 | RADRPT ---
EXAM DATE/TIME: 05/01/2017 22:29 [facility] COMPARISON: MRI BRAIN W & W/O CONTRAST, February 06, 2016, 19:02. INDICATIONS : MS. Weakness in all extremities. Cephalgia. CONTRAST: 10 cc Omniscan (gadodiamide) IV MEDICAL HISTORY : Multiple sclerosis. SURGICAL HISTORY : Tubal ligation. section. ENCOUNTER: Subsequent ACUITY: 2 day PAIN SCORE: 5/10 LOCATION: cranial TECHNIQUE: Multiplanar, multisequence MRI of the brain was performed both prior to and following the administrat ion of paramagnetic contrast. FINDINGS: CEREBRUM: The ventricles are normal for age. No evidence of midline shift, mass lesion, hemorrhage or acute in farction. No extraaxial fluid collections are seen. The pituitary gland and suprasellar cistern are normal in configuration. WHITE MATTER: Redemonstration of extensive areas of increased flair signal abnormality throughout the deep and cat ventricular. These appear slightly less prominent particularly in the posterior parietal and occipita l lobes in comparison to previous exam. No associated restricted diffusion with subtle focal enhancem ent of a single lesion in the right prior high convexities medially. POSTERIOR FOSSA: Subtle cerebellar and brainstem plaques improved from prior exam. The 4th ventricle is midline. The c erebellopontine angle is unremarkable. The cerebellar tonsils are normal in position. DIFFUSION IMAGING: No focal areas of restricted diffusion are seen. No evidence of acute infarction. EXTRACRANIAL: The visualized portions of the orbits and paranasal sinuses are unremarkable. POST-CONTRAST: No abnormal areas of parenchymal or dural enhancement. No evidence of blood-brain barrier breakdown. CONCLUSION: 1. Extensive diffuse white matter plaques which have largely improved particularly in the posterior p arietal/occipital lobes and cerebellum/brain stem in comparison to prior exam. 2. Single focal enhancement in the medial right parietal high convexities consistent with active demy elination. Kuldeep Gabriel MD on May 02, 2017 at 0:32 Board Certified Radiologist. This report was verified electronically.
--- NOTE | 2017-05-02 00:49 | RADRPT ---
EXAM DATE/TIME: 05/01/2017 22:29 [facility] COMPARISON: MRI CERVICAL SPINE W & W/O CONTRAST, May 01, 2017, 22:29. MRI THORACIC SPINE W & W/O CONTRAST, O ctober 2015, 19:02. INDICATIONS : Extremity weakness. MS. CONTRAST: 10 cc Omniscan (gadodiamide) IV MEDICAL HISTORY : Multiple sclerosis. SURGICAL HISTORY : Tubal ligation. section. ENCOUNTER: Subsequent ACUITY: 2 day PAIN SCORE: 0/10 LOCATION: spine TECHNIQUE: Multiplanar multisequence MRI of the thoracic spine was performed. FINDINGS: VERTEBRA: Normal vertebral body height. Homogeneous marrow signal. ALIGNMENT: Normal. CORD: Diffuse T2 signal abnormality throughout the thoracic spinal cord which appears slightly more promine nt than on prior exam. This is largely due to more confluent plaque at T2-6. Overall, distribution is stable with plaques most notably noted at T2-6 and T8-10. Cord is normal in caliber. POST CONTRAST: No abnormal areas of contrast enhancement seen. T1-T2: Normal. T2-T3: The thecal sac has a normal diameter. No evidence of disc bulge or protrusion. T3-T4: The thecal sac has a normal diameter. No evidence of disc bulge or protrusion. T4-T5: The thecal sac has a normal diameter. No evidence of disc bulge or protrusion. T5-T6: The thecal sac has a normal diameter. No evidence of disc bulge or protrusion. T6-T7: The thecal sac has a normal diameter. No evidence of disc bulge or protrusion. T7-T8: The thecal sac has a normal diameter. No evidence of disc bulge or protrusion. T8-T9: The thecal sac has a normal diameter. No evidence of disc bulge or protrusion. T9-T10: The thecal sac has a normal diameter. No evidence of disc bulge or protrusion. T10-T11: The thecal sac has a normal diameter. No evidence of disc bulge or protrusion. T11-T12: The thecal sac has a normal diameter. No evidence of disc bulge or protrusion. T12-L1: The thecal sac has a normal diameter. No evidence of disc bulge or protrusion. CONCLUSION: 1. Extensive diffuse abnormal signal throughout the thoracic cord which appears slightly more promine nt with more confluence in the proximal thoracic spine. 2. No significant associated abnormal enhancement. Kuldeep Gabriel MD on May 02, 2017 at 0:43 Board Certified Radiologist. This report was verified electronically.
[2017-05-02] MEDS ORDERED: KETOROLAC TROMETHAMINE 30 MG/ML (IVP) VIAL IV PUSH ONE (03:00)
[2017-05-02 06:49] LABS: BASOPHIL % 0.1 % (0.0-2.0); EOSINOPHIL % 0.1 % (0.0-4.0); HEMATOCRIT 35.8 % (35.0-46.0); HEMOGLOBIN 11.7 GM/DL (11.6-15.3); LYMPH % 3.5 % (9.0-44.0); LYMPHOCYTE # 0.3 TH/MM3 (1.0-4.8); MEAN CELL VOLUME 84.4 FL (80.0-100.0); MEAN CORPUSCULAR HEMOGLOBIN 27.6 PG (27.0-34.0); MEAN CORPUSCULAR HGB CONC 32.7 % (32.0-36.0); MEAN PLATELET VOLUME 7.8 FL (7.0-11.0); MONOCYTE # 0.1 TH/MM3 (0-0.9); NEUT % 95.3 % (16.0-70.0); PLATELET COUNT 280 TH/MM3 (150-450); RED BLOOD COUNT 4.24 MIL/MM3 (4.00-5.30); RED CELL DISTRIBUTION WIDTH 11.9 % (11.6-17.2); WHITE BLOOD COUNT 8.4 TH/MM3 (4.0-11.0)
[2017-05-02 06:55] LABS: BICARBONATE 29.3 MEQ/L (21.0-32.0); CALCIUM 9.1 MG/DL (8.5-10.1)
[2017-05-02 06:59] LABS: CREATININE 0.87 MG/DL (0.50-1.00)
[2017-05-02] MEDS ORDERED: RANITIDINE HCL SYRUP 150 MG/10 ML UDC PO SCH (09:00)
[2017-05-02] MEDS: FAMOTIDINE 20 MG TAB PO SCH ×2 (09:56→22:54)
[2017-05-02] MEDS: methylPREDNISolone SOD SUCC 125 MG/2 ML VIAL IV PUSH SCH ×3 (09:57→23:09)
[2017-05-02] MEDS: SODIUM CHLORIDE 0.9% FLUSH 10 ML FLUSH IV FLUSH SCH ×2 (09:57→22:54)
[2017-05-02] MEDS ORDERED: WALKER WHEELS/F1 MIS (10:29)
--- NOTE | 2017-05-02 15:43 | HHI.HP ---
[facility] Service [facility] Primary Care Physician Mina West MD Admission Diagnosis multiple sclerosis flareup, UTI Diagnoses: Chief Complaint: Upper and lower extremity weakness. Travel History International Travel<30 Days: No Contact w/Intl Traveler <30 Da: No Traveled to Known Affected Are: No History of Present Illness This is a 32-year-old female with past medical history of multiple sclerosis. The patient states that approximately 4 AM on the day of admission the patient noted bilateral leg weakness and weakness on hand patient escort bilaterally. The patient states that she has bilateral foot drop. The patient denies any chest pain, shortness of breath, cough, diarrhea, nausea, vomiting. The patient denies any headache but had low-grade fever on presentation. As per ED record it states that the patient complaining of dysuria frequency and urgency, however patient denies having these symptoms. Review of Systems As per history of present illness, other systems reviewed by me and negative. Past Family Social History Past Medical History 1 multiple sclerosis. 2. Anemia. Past Surgical History 1. Tubal ligation. 2. section 3 Reported Medications Reported Meds & Active Scripts Active Walker with Front Wheels (Device) 1 Mis Mis Ea .ROUTE DIRECTED Oxycodone (Oxycodone HCl) 5 Mg Cap 5 Mg PO Q6H PRN Reported Fioricet (Anryruxtzi-Ldfxrwzcemhnr-Ocmfgjzw) 50-300-40 Mg Cap 1 Cap PO Q4H PRN Mirena (Levonorgestrel (Iud)) 20 Mcg/24 Hour (5 Years) Iud 1 Ea I-UTERINE ONCE [shots for ms] Aubagio (Teriflunomide) 14 Mg Tab 14 Mg PO DAILY Baclofen 10 Mg Tab 10 Mg PO BID Allergies: Coded Allergies: acetaminophen (Unverified Allergy, Severe, 05/01/17) vomiting hydrocodone (Unverified Allergy, Severe, 05/01/17) vomiting tramadol (Unverified Allergy, Severe, Nausea/Vomiting, 05/01/17) Active Ordered Medications Current Medications Medications (Trade) Dose Ordered Sig/Gabriella Route Start Time Stop Time Status Last Admin (NS Flush) 2 ml UNSCH PRN IV FLUSH 05/01/17 21:30 (NS Flush) 2 ml BID IV FLUSH 05/02/17 09:00 05/02/17 09:57 (Narcan Inj) 0.4 mg UNSCH PRN IV PUSH 05/01/17 21:30 (SoluMEDROL INJ) 500 mg Q12HR IV PUSH 05/01/17 22:00 05/02/17 09:57 (Pepcid) 20 mg Q12HR PO 05/02/17 09:00 05/02/17 09:56 Family History The patient is adopted. Family history unknown. Social History The patient denies smoking and she drinks occasionally. She does not use any drugs. Physical Exam Vital Signs Vital Signs Date Time Temp Pulse Resp B/P (MAP) Pulse Ox O2 Delivery O2 Flow Rate FiO2 05/02/17 12:00 96.7 82 12 94/60 (71) 98 05/02/17 08:00 96.3 77 12 101/68 (79) 94 05/02/17 04:00 97.0 68 16 87/51 (63) 98 05/02/17 03:47 79 05/02/17 01:30 97.7 97 16 107/62 (77) 97 05/02/17 00:36 98.6 90 15 103/68 (80) 98 05/02/17 00:34 98.6 90 15 103/68 (80) 98 Room Air 05/01/17 19:07 100.3 116 18 110/57 (74) Physical Exam GENERAL: This is a well-nourished, well-developed patient, in no apparent distress. SKIN: No rashes, ecchymoses or lesions. Cool and dry. HEAD: Atraumatic. Normocephalic. No temporal or scalp tenderness. EYES: Pupils equal round and reactive. Extraocular motions intact. No scleral icterus. No injection or drainage. ENT: Nose without bleeding, purulent drainage or septal hematoma. Throat without erythema, tonsillar hypertrophy or exudate. Uvula midline. Airway patent. NECK: Trachea midline. No JVD or lymphadenopathy. Supple, nontender, no meningeal signs. CARDIOVASCULAR: Regular rate and rhythm without murmurs, gallops, or rubs. RESPIRATORY: Clear to auscultation. Breath sounds equal bilaterally. No wheezes , rales, or rhonchi. GASTROINTESTINAL: Abdomen soft, non-tender, nondistended. No hepato-splenomegaly , or palpable masses. No guarding. MUSCULOSKELETAL: Extremities without clubbing, cyanosis, or edema. No joint tenderness, effusion, or edema noted. No calf tenderness. Negative Homans sign bilaterally. NEUROLOGICAL: Awake and alert. Cranial nerves II through XII intact. Motor and sensory grossly within normal limits. Muscle strength is 3 over 5 in lower extremities bilaterally. Forward 5 in upper extremities with decreased handgrip. Bilateral foot drop Laboratory Laboratory Tests Test 05/01/17 21:20 05/01/17 22:45 05/02/17 06:10 White Blood Count 10.1 8.4 Red Blood Count 4.66 4.24 Hemoglobin 12.9 11.7 Hematocrit 38.8 35.8 Mean Corpuscular Volume 83.1 84.4 Mean Corpuscular Hemoglobin 27.6 27.6 Mean Corpuscular Hemoglobin Concent 33.2 32.7 Red Cell Distribution Width 12.0 11.9 Platelet Count 278 280 Mean Platelet Volume 7.9 7.8 Neutrophils (%) (Auto) 84.4 95.3 Lymphocytes (%) (Auto) 5.4 3.5 Monocytes (%) (Auto) 5.4 1.0 Eosinophils (%) (Auto) 0.3 0.1 Basophils (%) (Auto) 4.5 0.1 Neutrophils # (Auto) 8.6 8.0 Lymphocytes # (Auto) 0.5 0.3 Monocytes # (Auto) 0.5 0.1 Eosinophils # (Auto) 0.0 0.0 Basophils # (Auto) 0.5 0.0 CBC Comment DIFF FINAL DIFF FINAL Differential Comment Blood Urea Nitrogen 7 8 Creatinine 0.76 0.87 Random Glucose 100 168 Total Protein 8.3 Albumin 3.6 Calcium Level 8.8 9.1 Magnesium Level 2.4 Alkaline Phosphatase 72 Aspartate Amino Transf (AST/SGOT) 33 Alanine Aminotransferase (ALT/SGPT) 18 Total Bilirubin 0.8 Sodium Level 131 136 Potassium Level 4.5 4.0 Chloride Level 98 102 Carbon Dioxide Level 27.1 29.3 Anion Gap 6 5 Estimat Glomerular Filtration Rate 89 76 Thyroid Stimulating Hormone 3rd Gen 1.030 Human Chorionic Gonadotropin, Quant LESS THAN 1 Urine Color YELLOW Urine Turbidity HAZY Urine pH 8.0 Urine Specific [place] 1.013 Urine Protein TRACE Urine Glucose (UA) NEG Urine Ketones TRACE Urine Occult Blood MOD Urine Nitrite POS Urine Bilirubin NEG Urine Leukocyte Esterase SMALL Urine RBC 10-14 Urine WBC 6-8 Urine Squamous Epithelial Cells 6-8 Urine Bacteria MANY Microscopic Urinalysis Comment CULTURE INDICATED Date/Time Source Procedure Growth Status 05/01/17 22:45 Urine Clean Catch Urine Culture - Preliminary RESULTS PENDING Resulted Result Diagram: 05/02/17 0610 05/02/17 0610 Imaging Last Impressions Thoracic Spine MRI 05/01/17 0000 Signed Impressions: Service Date/Time: April 22:29 - CONCLUSION: 1. Extensive diffuse abnormal signal throughout the thoracic cord which appears slightly more prominent with more confluence in the proximal thoracic spine. 2. No significant associated abnormal enhancement. Kuldeep Gabriel MD Lumbar Spine MRI 05/01/17 0000 Signed Impressions: Service Date/Time: April 22:29 - CONCLUSION: 1. Scattered increased T2 signal in the distal thoracic cord without significant enhancement consistent with chronic demyelinating process in this patient with history of multiple sclerosis. 2. No significant central canal or neural foraminal stenosis. Kuldeep Gabriel MD Cervical Spine MRI 05/01/17 0000 Signed Impressions: Service Date/Time: April 22:29 - CONCLUSION: 1. Significant diffuse patchy demineralization throughout the brainstem and cervical spinal cord which appears significantly progressed in the proximal cervical spine most notably at C2-4. 2. No abnormal associated enhancement. 3. Stable mild disc bulges C3-4 and right posterior disc protrusion at C6-7. Kuldeep Gabriel MD Brain MRI 05/01/17 0000 Signed Impressions: Service Date/Time: April 22:29 - CONCLUSION: 1. Extensive diffuse white matter plaques which have largely improved particularly in the posterior parietal/occipital lobes and cerebellum/brain stem in comparison to prior exam. 2. Single focal enhancement in the medial right parietal high convexities consistent with active demyelination. MD Randall Haines VTE Risk Assessment Caprini VTE Risk Assessment: Mod/High Risk (score >= 2) Caprini Risk Assessment Model Point Value = 1 Point Value = 2 Point Value = 3 Point Value = 5 Age 41-60 Minor surgery BMI > 25 kg/m2 Swollen legs Varicose veins or History of unexplained or recurrent spontaneous Oral contraceptives or hormone replacement Sepsis (< 1 month) Serious lung disease, including pneumonia (< 1 month) Abnormal pulmonary function Acute myocardial infarction Congestive heart failure (< 1 month) History of inflammatory bowel disease Medical patient at bed rest Age 61-74 Arthroscopic surgery Major open surgery (> 45 min) Laparoscopic surgery (> 45 min) Malignancy Confined to bed (> 72 hours) Immobilizing plaster cast Central venous access Age >= 75 History of VTE Family history of VTE Factor V Leiden Prothrombin [id number] Lupus anticoagulant Anticardiolipin antibodies Elevated serum homocysteine Heparin-induced thrombocytopenia Other congenital or acquired thrombophilia Stroke (< 1 month) Elective arthroplasty Hip, pelvis, or leg fracture Acute spinal cord injury (< 1 month) Prophylaxis Regimen Total Risk Factor Score Risk Level Prophylaxis Regimen 0-1 Low Early ambulation 2 Moderate Order ONE of the following: *Sequential Compression Device (SCD) *Heparin 5000 units SQ BID 3-4 Higher Order ONE of the following medications: *Heparin 5000 units SQ TID *Enoxaparin/Lovenox 40 mg SQ daily (WT < 150 kg, CrCl > 30 mL/min) *Enoxaparin/Lovenox 30 mg SQ daily (WT < 150 kg, CrCl > 10-29 mL/min) *Enoxaparin/Lovenox 30 mg SQ BID (WT < 150 kg, CrCl > 30 mL/min) AND/OR *Sequential Compression Device (SCD) 5 or more Highest Order ONE of the following medications: *Heparin 5000 units SQ TID (Preferred with Epidurals) *Enoxaparin/Lovenox 40 mg SQ daily (WT < 150 kg, CrCl > 30 mL/min) *Enoxaparin/Lovenox 30 mg SQ daily (WT < 150 kg, CrCl > 10-29 mL/min) *Enoxaparin/Lovenox 30 mg SQ BID (WT < 150 kg, CrCl > 30 mL/min) AND *Sequential Compression Device (SCD) Assessment and Plan Problem List: (1) UTI (urinary tract infection) ICD Code: N39.0 - Urinary tract infection, site not specified Status: Acute Plan: Start on IV Rocephin. fu urine cultures. (2) Multiple sclerosis ICD Code: G35 - Multiple sclerosis Status: Chronic Plan: Given IV Solumedrol, Continue. Consult neurology. (3) Hyponatremia ICD Code: E87.1 - Hypo-osmolality and hyponatremia Status: Resolved Plan: Likely hypovolemic hyponatremia which has resolved. (4) Hyperglycemia ICD Code: R73.9 - Hyperglycemia, unspecified Status: Acute (5) Weakness of both upper extremities ICD Code: R29.898 - Other symptoms and signs involving the musculoskeletal system Status: Acute Plan: Weakness of extremities likely secondary to emesis with exacerbation secondary to UTI. Now much improved, continue IV Solu-Medrol and IV Rocephin. (6) Weakness of both lower extremities ICD Code: M62.81 - Weakness of both lower extremities Status: Acute Plan: As above. Assessment and Plan Possibly a pseudo-exacerbation. Admit the patient to the medical floor. Will start on IV Rocephin for UTI. fu urine culture and adjust antibiotic selection accordingly - pending Neurology consultation. Continue IV Solu-Medrol - change dosing to 250 mg IV Q 6 hrs. Consult PT Gi proph: PPI DVT prophylaxis: SCD's, lovenox SQ. Code Status full code Discussed Condition With Patient Physician Certification 2 Midnight Certification Type: Admission for Inpatient Services Order for Inpatient Services The services are ordered in accordance with Medicare regulations or non- Medicare payer requirements, as applicable. In the case of services not specified as inpatient-only, they are appropriately provided as inpatient services in accordance with the 2-midnight benchmark. Estimated LOS (days): 2 days is the estimated time the patient will need to remain in the hospital, assuming treatment plan goals are met and no additional complications. Post-Hospital Plan: Not yet determined Problem Qualifiers (1) UTI (urinary tract infection): Qualified Codes: N30.00 - Acute cystitis without hematuria Oli Donaldson MD May 02, 2017 15:43
[2017-05-02] MEDS ORDERED: SODIUM CHLORID 0.9% 500 ML INJ 500 ML IV ONE (16:00)
[2017-05-02] MEDS: ACETAMIN 325 MG/BUTALBITAL 50 MG/CAFFEINE 40 MG TAB PO PRN (16:48)
[2017-05-02] MEDS: cefTRIAXone INJ 2,000 MG in SODIUM CHLORIDE 0.9% INJ 100 ML IV SCH (17:24)
[2017-05-02] MEDS: ENOXAPARIN SODIUM 40 MG/0.4 ML SYRINGE SQ SCH (17:36)
--- NOTE | 2017-05-02 17:52 | MB ---
cc: JUAN CARLOS FERRER DATE OF CONSULTATION 05/02/17 HISTORY OF PRESENT ILLNESS The patient has a long history of MS, very severe MS involving the brain, cervical and thoracic spinal cord. She walks with a walker at baseline. The last two weeks she has felt like she has slowly been going downhill with her walking. Then she had a fever yesterday and fell, came into the hospital, was found to have a urinary tract infection. She was last seen by Dr. Kohli in October of 2016. He noted relapsing remitting MS. She had been on for about a year and had been on until about maybe two months ago when she started on Aubagio 14 mg plus a study injection which she gets once a week I believe, unclear if it is placebo or not. Her last relapse before that was in June. She says she has a relapse about every 3-4 months. She does have a history of tubal ligation and anemia. I had seen her back in 2015. She had MS when she was 23 years old affecting both arms and legs, vision right side more than the left. She had delivered a baby in late 2014, was not on any meds for awhile, had been on Avonex for awhile. MEDICATIONS At home, 1. Fioricet 2. Mirena intrauterine. 3. Baclofen 10 b.i.d. 4. Tarafluminide 14 mg a day currently REVIEW OF SYSTEMS No hypertension, diabetes, hypercholesterolemia, FL, CABG, arrhythmia, stents, angioplasty. A. fib, Coumadin, renal, hepatic, pulmonary disease, thyroid disease, lupus, ulcer cancer seizure, stroke. SOCIAL HISTORY Not a smoker, occasional drink. No drugs. Lives with her and child. FAMILY HISTORY Negative for cancer, seizure or stroke. MS with lupus. PHYSICAL EXAMINATION Afebrile, T-max was 100.3, 94/60 12, 82. NECK: There are no carotid bruits. HEART: Regular rhythm. I did not detect a murmur. No apparent distress. Speech is normal. Pupils are equal. Visual alvarado are full. Extraocular movements intact without nystagmus. Face is symmetric with normal sensation. Tongue was midline. She had normal strength in bilateral upper extremities. In right lower extremity she is weaker, iliopsoas is about 3+/5, quadriceps is about a 4-/5, tibialis anterior is normal. Left lower extremity was a 4+/5 diffusely except for tibialis anterior 5/5. Toes are downgoing bilaterally. There is no ankle clonus. She is hyperreflexive on the right compared to the left knee jerk. She is somewhat ataxic on bilateral lower extremities, not on her fingers. Pinprick was intact throughout. Proprioception is intact in the toes bilaterally. LABORATORY DATA CBC is normal. Sed rate was normal back in 2015. RPR has been negative. Lyme titers have been essentially normal. Cryptococcal antigen has been negative in the past. LP showed 13 white cells, 8 red cells in 2008. IgG index was elevated as was IgG synthesis rate. ___ basic protein was normal. She did have bands noted greater than five oligoclonal bands back in 2008. CSF VDRL was negative. KUNAL has been normal. Coags normal. She had a von Wildebrand's factor which was normal in the past. Basic metabolic profile here was normal. LFTs normal. Total protein 8.3, albumin 3.6, TSH normal. HCG was negative. Her B12 has been normal in the past as has a methylmalonic acid, B6 and thiamine. IMAGING STUDIES MRI of the brain is much improved from 2016, although still a very small right parietal white matter enhancing region but the white matter changes that were so severe in 2016 are a lot better but still some black holes consistent with MS. Cervical and thoracic spine was thought to be slightly worsen than prior as far as MS load. UA on this admission 6-8 white cells, small amount of leuko esterase, many bacteria, 6-8 squamous epithelial cells and six to eight white cells. Urine culture is pending. IMPRESSION Possible UTI and is being treated. She felt better after her first dose of antibiotics. I would continue on three days of Solu-Medrol. She can get a gram total a day x3 and then could be discharged. Have PT work with her. She should follow with Dr. Kohli outpatient. MD NESTOR Gregory/ /4:37 PM /5:09 PM
[2017-05-02] MEDS: ONDANSETRON HCL 4 MG/2 ML VIAL IV PUSH PRN (22:52)
[2017-05-03] VITALS: BP 120/60; PULSE 91; RESP 20; TEMP 97; O2SAT 98
[2017-05-03 04:00] VITALS: O2SAT 98
[2017-05-03] MEDS: methylPREDNISolone SOD SUCC 125 MG/2 ML VIAL IV PUSH SCH ×4 (05:41→23:57)
[2017-05-03] MEDS: ONDANSETRON HCL 4 MG/2 ML VIAL IV PUSH PRN ×3 (05:49→23:56)
[2017-05-03 07:41] LABS: AUTOMATED NEUTROPHIL # 17.4 TH/MM3 (1.8-7.7); EOSINOPHIL % 0.1 % (0.0-4.0); HEMATOCRIT 32.6 % (35.0-46.0); HEMOGLOBIN 10.5 GM/DL (11.6-15.3); LYMPH % 2.9 % (9.0-44.0); LYMPHOCYTE # 0.5 TH/MM3 (1.0-4.8); MEAN CELL VOLUME 84.6 FL (80.0-100.0); MEAN CORPUSCULAR HEMOGLOBIN 27.1 PG (27.0-34.0); MEAN CORPUSCULAR HGB CONC 32.1 % (32.0-36.0); MEAN PLATELET VOLUME 8.1 FL (7.0-11.0); MONO % 3.5 % (0.0-8.0); MONOCYTE # 0.6 TH/MM3 (0-0.9); NEUT % 93.5 % (16.0-70.0); PLATELET COUNT 314 TH/MM3 (150-450); RED BLOOD COUNT 3.86 MIL/MM3 (4.00-5.30); WHITE BLOOD COUNT 18.5 TH/MM3 (4.0-11.0)
[2017-05-03 07:42] LABS: CHLORIDE 106 MEQ/L (98-107); SODIUM (NA) 139 MEQ/L (136-145)
[2017-05-03 07:49] LABS: CALCIUM 8.5 MG/DL (8.5-10.1)
[2017-05-03 07:57] LABS: ALBUMIN 2.8 GM/DL (3.4-5.0); ALKALINE PHOSPHATASE 58 U/L (45-117); ALT (GPT) 14 U/L (10-53); AST (GOT) 11 U/L (15-37); BICARBONATE 26.5 MEQ/L (21.0-32.0); BLOOD UREA NITROGEN 12 MG/DL (7-18); CREATININE 0.62 MG/DL (0.50-1.00); GLOMERULAR FILTRATION RATE 113 ML/MIN (>89); GLUCOSE,RANDOM 160 MG/DL (74-106); MAGNESIUM 2.4 MG/DL (1.5-2.5); PHOSPHORUS 2.8 MG/DL (2.5-4.9); TOTAL BILIRUBIN ADULT 0.1 MG/DL (0.2-1.0); TOTAL PROTEIN 6.6 GM/DL (6.4-8.2)
[2017-05-03 08:00] VITALS: BP 90/55; PULSE 79; RESP 16; TEMP 97.9; O2SAT 100
[2017-05-03] MEDS: AUBAGIO 14 MG PO SCH (09:00)
[2017-05-03] MEDS ORDERED: AUBAGIO 14 MG PO SCH (09:00)
[2017-05-03] MEDS: FAMOTIDINE 20 MG TAB PO SCH ×2 (10:41→20:43)
[2017-05-03] MEDS: SODIUM CHLORIDE 0.9% FLUSH 10 ML FLUSH IV FLUSH SCH ×2 (10:41→20:44)
[2017-05-03] MEDS ORDERED: methylPREDNISolone SOD SUCC 125 MG/2 ML VIAL IV PUSH SCH (11:00)
[2017-05-03 12:00] VITALS: BP 97/54; PULSE 78; RESP 18; TEMP 96.9; O2SAT 96
--- NOTE | 2017-05-03 13:18 | HHI.PR ---
Subjective Remarks Patient seen and evaluated today for urinary tract infection and for weakness. Weakness appears to be improving with Solu-Medrol. Patient has a side effect which is more pronounced with high doses of Solu-Medrol and therefore the doses have been broken up throughout the day. This is better for her. Urinary cultures are still pending. Objective Vitals Vital Signs Date Time Temp Pulse Resp B/P (MAP) Pulse Ox O2 Delivery O2 Flow Rate FiO2 05/03/17 12:00 96.9 78 18 97/54 (68) 96 05/03/17 08:00 97.9 79 16 90/55 (67) 100 05/03/17 04:00 98 05/03/17 00:00 97.0 91 20 120/60 (80) 98 05/02/17 20:00 97.8 90 20 101/57 (72) 98 05/02/17 16:00 97.5 82 12 103/70 (81) 97 I/O 05/02/17 05/02/17 05/02/17 05/03/17 05/03/17 05/03/17 07:00 15:00 23:00 07:00 15:00 23:00 Intake Total 580 ml 222 ml 1056 ml 120 ml Balance 580 ml 222 ml 1056 ml 120 ml Intake Oral 480 ml 222 ml 456 ml 120 ml IV Total 100 ml 600 ml # Voids 1 0 3 # Bowel Movements 0 0 Result Diagram: 05/03/17 0700 05/03/17 0700 Imaging Last Impressions Thoracic Spine MRI 05/01/17 0000 Signed Impressions: Service Date/Time: April 22:29 - CONCLUSION: 1. Extensive diffuse abnormal signal throughout the thoracic cord which appears slightly more prominent with more confluence in the proximal thoracic spine. 2. No significant associated abnormal enhancement. Kuldeep Gabriel MD Lumbar Spine MRI 05/01/17 0000 Signed Impressions: Service Date/Time: April 22:29 - CONCLUSION: 1. Scattered increased T2 signal in the distal thoracic cord without significant enhancement consistent with chronic demyelinating process in this patient with history of multiple sclerosis. 2. No significant central canal or neural foraminal stenosis. Kuldeep Gabriel MD Cervical Spine MRI 05/01/17 0000 Signed Impressions: Service Date/Time: April 22:29 - CONCLUSION: 1. Significant diffuse patchy demineralization throughout the brainstem and cervical spinal cord which appears significantly progressed in the proximal cervical spine most notably at C2-4. 2. No abnormal associated enhancement. 3. Stable mild disc bulges C3-4 and right posterior disc protrusion at C6-7. Kuldeep Gabriel MD Brain MRI 05/01/17 0000 Signed Impressions: Service Date/Time: April 22:29 - CONCLUSION: 1. Extensive diffuse white matter plaques which have largely improved particularly in the posterior parietal/occipital lobes and cerebellum/brain stem in comparison to prior exam. 2. Single focal enhancement in the medial right parietal high convexities consistent with active demyelination. Kuldeep Gabriel MD Objective Remarks GENERAL: This is a well-nourished, well-developed patient, in no apparent distress. CARDIOVASCULAR: Regular rate and rhythm without murmurs, gallops, or rubs. RESPIRATORY: Clear to auscultation. Breath sounds equal bilaterally. No wheezes , rales, or rhonchi. GASTROINTESTINAL: Abdomen soft, non-tender, nondistended. Normal active bowel sounds MUSCULOSKELETAL: Extremities without clubbing, cyanosis, or edema. NEURO: Alert & Oriented x4 to person, place, time, situation. Moves all ext x4 A/P Problem List: (1) UTI (urinary tract infection) ICD Code: N39.0 - Urinary tract infection, site not specified Status: Acute Plan: Continue empiric Rocephin, cultures are pending (2) Multiple sclerosis ICD Code: G35 - Multiple sclerosis Status: Chronic Plan: Continue Solu-Medrol 3 days, images consistent with MS (3) Hyponatremia ICD Code: E87.1 - Hypo-osmolality and hyponatremia Status: Resolved Plan: Improved Discharge Planning Likely discharge in 05/04. after steroids Problem Qualifiers (1) UTI (urinary tract infection): Qualified Codes: N30.00 - Acute cystitis without hematuria iNcole Morrell MD May 03, 2017 13:18
[2017-05-03 16:00] VITALS: BP 104/51; PULSE 59; RESP 16; TEMP 97; O2SAT 100
[2017-05-03] MEDS ORDERED: BISACODYL EC 5 MG TABEC PO ONE (17:00)
[2017-05-03] MEDS: ENOXAPARIN SODIUM 40 MG/0.4 ML SYRINGE SQ SCH (17:18)
[2017-05-03] MEDS: cefTRIAXone INJ 2,000 MG in SODIUM CHLORIDE 0.9% INJ 100 ML IV SCH (17:19)
[2017-05-03] MEDS: ACETAMIN 325 MG/BUTALBITAL 50 MG/CAFFEINE 40 MG TAB PO PRN (17:20)
[2017-05-03 20:00] VITALS: BP 98/63; PULSE 85; RESP 18; TEMP 97.8; O2SAT 98
[2017-05-04] VITALS: BP 106/65; PULSE 81; RESP 16; TEMP 97.6; O2SAT 98
[2017-05-04] MEDS: methylPREDNISolone SOD SUCC 125 MG/2 ML VIAL IV PUSH SCH (05:19)
--- NOTE | 2017-05-04 08:30 | HHI.DCPOC ---
Discharge Care Plan Diagnosis: (1) UTI (urinary tract infection) (2) Multiple sclerosis Goals to Promote Your Health * To prevent worsening of your condition and complications * To maintain your health at the optimal level Directions to Meet Your Goals Take your medications as prescribed Follow your dietary instruction Follow activity as directed Keep your appointments as scheduled Take your immunizations and boosters as scheduled If your symptoms worsen call your PCP, if no PCP go to Urgent Care Center or Emergency Room Smoking is Dangerous to Your Health. Avoid second hand smoke Call the 24-hour hour crisis hotline for domestic abuse at Nicole Morrell MD May 04, 2017 08:30
--- NOTE | 2017-05-04 08:32 | HHI.DS ---
Discharge Summary Admission Date May 01, 2017 at 21:38 Discharge Date: May 04, 2017 Admitting Diagnosis multiple sclerosis flareup, UTI (1) UTI (urinary tract infection) ICD Code: N39.0 - Urinary tract infection, site not specified Status: Acute (2) Multiple sclerosis ICD Code: G35 - Multiple sclerosis Status: Chronic (3) Hyponatremia ICD Code: E87.1 - Hypo-osmolality and hyponatremia Status: Resolved Procedures None Brief History - From Admission This is a 32-year-old female with past medical history of multiple sclerosis. 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 The patient states that she has bilateral foot drop. The patient denies any chest pain, shortness of breath, cough, diarrhea, nausea, vomiting. The patient denies any headache but had low-grade fever on presentation. As per ED record it states that the patient complaining of dysuria frequency and urgency, however patient denies having these symptoms. CBC/BMP: 05/03/17 0700 05/03/17 0700 Significant Findings Laboratory Tests Test 05/01/17 21:20 05/01/17 22:45 05/02/17 06:10 05/03/17 07:00 Neutrophils (%) (Auto) 84.4 % (16.0-70.0) 95.3 % (16.0-70.0) 93.5 % (16.0-70.0) Lymphocytes (%) (Auto) 5.4 % (9.0-44.0) 3.5 % (9.0-44.0) 2.9 % (9.0-44.0) Basophils (%) (Auto) 4.5 % (0.0-2.0) Neutrophils # (Auto) 8.6 TH/MM3 (1.8-7.7) 8.0 TH/MM3 (1.8-7.7) 17.4 TH/MM3 (1.8-7.7) Lymphocytes # (Auto) 0.5 TH/MM3 (1.0-4.8) 0.3 TH/MM3 (1.0-4.8) 0.5 TH/MM3 (1.0-4.8) Basophils # (Auto) 0.5 TH/MM3 (0-0.2) Total Protein 8.3 GM/DL (6.4-8.2) Sodium Level 131 MEQ/L (136-145) Urine Turbidity HAZY (CLEAR) Urine Ketones TRACE mg/dL (NEG) Urine Occult Blood MOD (NEG) Urine Nitrite POS (NEG) Urine Leukocyte Esterase SMALL (NEG) Urine RBC 10-14 /hpf (0-3) Urine WBC 6-8 /hpf (0-5) Urine Squamous Epithelial Cells 6-8 /hpf (0-5) Urine Bacteria MANY /hpf (NONE) Random Glucose 168 MG/DL (74-106) 160 MG/DL (74-106) Estimat Glomerular Filtration Rate 76 ML/MIN (>89) White Blood Count 18.5 TH/MM3 (4.0-11.0) Red Blood Count 3.86 MIL/MM3 (4.00-5.30) Hemoglobin 10.5 GM/DL (11.6-15.3) Hematocrit 32.6 % (35.0-46.0) Albumin 2.8 GM/DL (3.4-5.0) Aspartate Amino Transf (AST/SGOT) 11 U/L (15-37) Total Bilirubin 0.1 MG/DL (0.2-1.0) Imaging Last Impressions Thoracic Spine MRI 05/01/17 0000 Signed Impressions: Service Date/Time: April 22:29 - CONCLUSION: 1. Extensive diffuse abnormal signal throughout the thoracic cord which appears slightly more prominent with more confluence in the proximal thoracic spine. 2. No significant associated abnormal enhancement. Kuldeep Gabriel MD Lumbar Spine MRI 05/01/17 0000 Signed Impressions: Service Date/Time: April 22:29 - CONCLUSION: 1. Scattered increased T2 signal in the distal thoracic cord without significant enhancement consistent with chronic demyelinating process in this patient with history of multiple sclerosis. 2. No significant central canal or neural foraminal stenosis. Kuldeep Gabriel MD Cervical Spine MRI 05/01/17 0000 Signed Impressions: Service Date/Time: April 22:29 - CONCLUSION: 1. Significant diffuse patchy demineralization throughout the brainstem and cervical spinal cord which appears significantly progressed in the proximal cervical spine most notably at C2-4. 2. No abnormal associated enhancement. 3. Stable mild disc bulges C3-4 and right posterior disc protrusion at C6-7. Kuldeep Gabriel MD Brain MRI 05/01/17 0000 Signed Impressions: Service Date/Time: April 22:29 - CONCLUSION: 1. Extensive diffuse white matter plaques which have largely improved particularly in the posterior parietal/occipital lobes and cerebellum/brain stem in comparison to prior exam. 2. Single focal enhancement in the medial right parietal high convexities consistent with active demyelination. Kuldeep Gabriel MD PE at Discharge GENERAL: This is a well-nourished, well-developed patient, in no apparent distress. CARDIOVASCULAR: Regular rate and rhythm without murmurs, gallops, or rubs. RESPIRATORY: Clear to auscultation. Breath sounds equal bilaterally. No wheezes , rales, or rhonchi. GASTROINTESTINAL: Abdomen soft, non-tender, nondistended. Normal active bowel sounds MUSCULOSKELETAL: Extremities without clubbing, cyanosis, or edema. NEURO: Alert & Oriented x4 to person, place, time, situation. Moves all ext x4 Pt update on day of discharge This patient is doing well on current*noise steroid dose No new issues overnight. Discharge plans discussed with patient once her steroids were completed today and she is in agreement Hospital Course This patient seen and evaluated in follow-up for MS flareup with UTI Has done well with IV steroids. She has also been with empiric antibiotics. No new complaints and likely for discharge later today Pt Condition on Discharge: Good Discharge Disposition: Discharge Home Discharge Time: <= 30 minutes Discharge Instructions DIET: Follow Instructions for: As Tolerated, No Restrictions Activities you can perform: Regular-No Restrictions Follow up Referrals: PCP Follow-up - 1 Week New Medications: Walker with Front Wheels (Walker with Front Wheels) 1 Mis Mis EA .ROUTE DIRECTED, #1 0 Refills Continued Medications: Baclofen (Baclofen) 10 Mg Tab 10 MG PO BID for Muscle Spasm, TAB 0 Refills Vwepluaaey-Cqdjxzegjzvel-Bhjbhoax (Fioricet) 50-300-40 Mg Cap 1 CAP PO Q4H PRN for HEADACHE, CAP 0 Refills Levonorgestrel (Iud) (Mirena) 20 Mcg/24 Hour (5 Years) Iud 1 EA I-UTERINE ONCE for Control, #1 EA 0 Refills Oxycodone (Oxycodone) 5 Mg Cap 5 MG PO Q6H PRN for PAIN, #12 CAP 0 Refills Teriflunomide (Aubagio) 14 Mg Tab 14 MG PO DAILY for Multiple sclerosis, #30 TAB 0 Refills [shots for ms] () Nicole Morrell MD May 04, 2017 08:32
[2017-05-04 09:00] VITALS: BP 105/56; PULSE 59; RESP 16; TEMP 98.2; O2SAT 98
[2017-05-04] MEDS: SODIUM CHLORIDE 0.9% FLUSH 10 ML FLUSH IV FLUSH SCH (10:31)
[2017-05-04] MEDS: FAMOTIDINE 20 MG TAB PO SCH (10:31)
[2017-05-04] MEDS: AUBAGIO 14 MG PO SCH (10:31)
[2017-05-04] MEDS: ACETAMIN 325 MG/BUTALBITAL 50 MG/CAFFEINE 40 MG TAB PO PRN ×2 (10:32→15:23)
[2017-05-04 12:00] VITALS: BP 107/70; PULSE 65; RESP 16; TEMP 98; O2SAT 99
[2017-05-04] MEDS ORDERED: cefTRIAXone INJ 2,000 MG in SODIUM CHLORIDE 0.9% INJ 100 ML IV SCH (12:00)
[2017-05-04 16:23] VITALS: RESP 18
[2017-05-04] MEDS: ENOXAPARIN SODIUM 40 MG/0.4 ML SYRINGE SQ SCH (17:00)
[2017-05-04] MEDS ORDERED: SODIUM CHLORIDE 0.9% IV ONE (17:00)
[2017-05-04] MEDS ORDERED: METHYLPREDNISOLONE SO SUCC IV ONE (17:00)
== END 2017-05-04 18:51 | disposition home or self-care (01) | DRG 59 ==
LOC: PHED 18:56 → PHEDA 21:38 → PH3A 05-02 01:30
PROVIDERS: ADMIT Hospitalist; ATTEND Hospitalist
DX: G35 Multiple sclerosis (principal); N39.0 Urinary tract infection, site not specified; E87.1 Hypo-osmolality and hyponatremia; M21.371 Foot drop, right foot; M21.372 Foot drop, left foot; R32 Unspecified urinary incontinence; R73.9 Hyperglycemia, unspecified; F32.9 Major depressive disorder, single episode, unspecified; F41.9 Anxiety disorder, unspecified; Z88.5 Allergy status to narcotic agent; Z88.6 Allergy status to analgesic agent
CPT/HCPCS: 70553; 72156; 72157; 72158; 80048; 80053; 81001; 83735; 84100; 84443; 84702; 85025; 87077; 87086; 87186; 99285; A9579; J0696; J1650; J1885; J2405; J2930; J7040